=== PATIENT | female | born 1940 | race Caucasian/White ===

== ENCOUNTER → 2017-08-23 11:45 | Outpatient (CLI) | payer MEDICARE, OTHER, SELFPAY ==
--- NOTE | 2017-08-23 11:57 | RAD_ITS ---
STUDY: X-RAY - LEFT HUMERUS REASON FOR EXAM: Female, 77 years old. Patient fell this past Wednesday. Pain in the left humerus into the left shoulder TECHNIQUE: 3 view(s) of the humerus. COMPARISON: None. FINDINGS: Normal visualized humerus. There is no demonstrated fracture or osseous destructive process. There is osteoporosis There is no demonstrated soft tissue abnormality. RAD/Humerus min 2 Views IMPRESSION: Osteoporosis. No fractures or dislocations are seen Electronically Signed: Deion Knutson MD, FACR at 12:14 EST , Service support ,
== END ==
PROVIDERS: Family Provider Family Medicine; PCP Family Medicine; Visit Provider Family Medicine
DX: S43.402A Unspecified sprain of left shoulder joint, initial encounter (principal); X58.XXXA Exposure to other specified factors, initial encounter
CPT/HCPCS: 73060

== ENCOUNTER → 2019-05-24 15:21 | Outpatient (CLI) | payer MEDICARE, OTHER, SELFPAY ==
[2019-05-24 17:48] LABS: Absolute Lymphocyte Count 3.73 X10^3/uL (0.83-4.51); Absolute Neutrophil Count 5.5 X10^3/uL (2.0-7.7); Basophil# 0.11 X10^3/uL; Basophil% 1.1 % (0-1); Eosinophil# 0.21 X10^3/uL; Hematocrit 44.6 % (37-47); Hemoglobin 14.1 g/dL (12.0-15.0); Lymphocyte # 3.73 X10^3/ul (4.0); Mean Corp Hgb Conc 31.6 g/dL (32-36); Mean Corpuscular Hgb 30.4 pg (27.0-32.0); Mean Corpuscular Volume 96.1 fL (81-99); Mean Platelet Vol. 9.6 fl (6.2-12.0); Monocyte# 0.78 X10^3/uL; Monocyte% 7.5 % (0-10); NRBC Flagged by Analyzer 0 % (0-5); Neutrophil # 5.51 X10^3/uL (2.7-7.7); Neutrophil % 53.1 % (47-70); Platelet Count 332 K/mm3 (150-450); RBC Distribution Width CV 14.4 % (11.6-14.6); RBC Distribution Width SD 51.4 fl (35.1-43.9); Red Blood Count 4.64 M/mm3 (4.2-5.4); White Blood Count 10.4 K/mm3 (4.4-11.0)
[2019-05-24 17:57] LABS: Vitamin B12 655 pg/mL (211-911); Vitamin D,25 Hydroxy 53.4 ng/mL (29.95-100.01)
[2019-05-24 18:03] LABS: Erythrocyte Sedimentation Rate 15 mm/hr (0-30)
[2019-05-24 18:48] LABS: ALB/GLOB Ratio 0.9 RATIO (0.9-2.4); AST(SGOT) 24 U/L (15-37); Alanine Aminotransfer ALT/SGPT 27 U/L (13-56); Albumin, Serum 3.8 g/dL (3.2-5.0); Alkaline Phosphatase 89 U/L (45-117); Anion Gap 6 (5-15); BUN 15 mg/dL (7-18); BUN/Creat Ratio 18.4 RATIO (10-20); Calcium,Total 9.3 mg/dL (8.5-10.1); Chloride 106 mmol/L (98-107); Creatinine, Serum 0.82 mg/dL (0.55-1.02); EST Glomerular Filtration Rate 72 mL/min (>60); Est Glom Filt Rate - Afr Amer 87 mL/min (>60); Ferritin 80 ng/mL (8-252); Globulin 4.2 g/dL (2.2-4.2); Glucose 80 mg/dL (74-106); Potassium 3.8 mmol/L (3.5-5.1); Sodium Level 139 mmol/L (136-145); T4 Free Direct 0.76 ng/dL (0.76-1.46); Thyroid Stim Hormone (TSH) 4.49 uIU/mL (0.358-3.74)
[2019-05-25 07:58] LABS: PTHIN 35.2 pg/mL (18.4-80.1)
[2019-05-26 12:29] LABS: ANTINUCLEAR ANTIBODIES DIRECT Negative (Negative)
== END ==
PROVIDERS: Family Provider Family Medicine; PCP Family Medicine; Referring Provider Family Medicine; Visit Provider Family Medicine
DX: M81.0 Age-related osteoporosis without current pathological fracture (principal); R53.81 Other malaise
CPT/HCPCS: 36415; 80053; 82306; 82607; 82728; 82746; 83970; 84439; 84443; 85025; 85652; 86038

== ENCOUNTER → 2020-12-16 17:25 | Outpatient (CLI) | payer MEDICARE, OTHER, SELFPAY ==
--- NOTE | 2020-12-16 17:31 | RAD_ITS ---
STUDY: X-RAY - ACUTE ABDOMINAL SERIES REASON FOR EXAM: Female, 80 years old. constipation TECHNIQUE: Single view of the chest. Supine, and erect view(s) of the abdomen were obtained. COMPARISON: 03/19/2014 FINDINGS: The lungs are clear and expanded. Normal size heart. Normal mediastinum and sherrei. Normal visualized pulmonary arteries. Normal visualized aortic arch and descending thoracic aorta. There is a non-specific bowel gas pattern. The soft tissue structures of the abdomen and pelvis are unremarkable. Normal visualized osseous structures. RAD/Acute Abdomen Inc Chest IMPRESSION: Normal x-ray examination of the chest, abdomen, and pelvis. Electronically Signed: Julio Mathis MD at 18:01 EDT Tel , Service support ,
== END ==
PROVIDERS: PCP Family Medicine; Referring Provider Family Medicine; Visit Provider Family Medicine
DX: K59.00 Constipation, unspecified (principal)
CPT/HCPCS: 74022

== ENCOUNTER 2020-12-24 11:45 | Emergency (ER) | payer MEDICARE, OTHER, SELFPAY ==
[2020-12-24 11:45] VITALS: BP 153/84; PULSE 97; RESP 16; TEMP 36.3; O2SAT 97; BMI 22.8
--- NOTE | 2020-12-24 12:39 | CT_ITS ---
STUDY: CT ABDOMEN AND PELVIS WITHOUT CONTRAST REASON FOR EXAM: Female, 80 years old. Two-week history of abdominal pain and constipation. RADIATION DOSAGE (If Supplied By Facility): CTDIvol = ( 6.24 ) mGy, DLP = ( 277.37 ) mGycm TECHNIQUE: Transaxial images were obtained from the dome of the diaphragm to the symphysis pubis without oral contrast, and without intravenous contrast. Sagittal and coronal images were reconstructed. Individualized dose optimization techniques were used for this CT. COMPARISON: None. FINDINGS: Mild degree of increased linear markings at the lung bases suggestive of linear scarring. Coronary artery calcification Normal liver. Normal gallbladder and extrahepatic biliary system. Normal spleen. Normal pancreas. Normal bilateral adrenal glands. Mild degree of bilateral hydronephrosis although the ureters are not dilated. This may represent congenital UP junction obstruction. Normal visualized stomach. Normal small intestine. There are multiple colonic diverticula consistent with diverticulosis. Moderate amount of fecal material is seen in the colon. There is non-visualization of the appendix. There is diffuse atherosclerotic calcification of the abdominal aorta and its major visceral branches, without a demonstrated aneurysm. Normal inferior vena cava. Normal retroperitoneum. Normal urinary bladder. There is absence of the uterus consistent with a prior hysterectomy. Normal abdominal wall. There are diffuse degenerative changes of the visualized lumbar spine. CT/Abdomen/Pelvis without Cont IMPRESSION: Mild degree of bilateral hydronephrosis. Moderate amount of fecal material is seen in the colon. Electronically Signed: Fausto Cagle MD at 13:34 EDT , Service support ,
[2020-12-24] MEDS: Ondansetron 4 MG/2 ML Vial IV (12:43)
[2020-12-24 12:53] LABS: Absolute Neutrophil Count 5.4 X10^3/uL (2.0-7.7); Basophil# 0.07 X10^3/uL; Basophil% 0.8 % (0-1); Eosinophil# 0.19 X10^3/uL; Eosinophils% 2.2 % (0-5); Hematocrit 44.3 % (37-47); Hemoglobin 14.5 g/dL (12.0-15.0); Lymphocyte % 27.3 % (19-41); Mean Corp Hgb Conc 32.7 g/dL (32-36); Mean Corpuscular Hgb 30.8 pg (27.0-32.0); Mean Corpuscular Volume 94.1 fL (81-99); Mean Platelet Vol. 8.8 fl (6.2-12.0); NRBC Flagged by Analyzer 0 % (0-5); Neutrophil # 5.38 X10^3/uL (2.7-7.7); Neutrophil % 61.2 % (47-70); Platelet Count 356 K/mm3 (150-450); RBC Distribution Width CV 14.2 % (11.6-14.6); RBC Distribution Width SD 49.5 fl (35.1-43.9); Red Blood Count 4.71 M/mm3 (4.2-5.4); White Blood Count 8.8 K/mm3 (4.4-11.0)
[2020-12-24 13:09] LABS: ALB/GLOB Ratio 0.8 RATIO (0.9-2.4); AST(SGOT) 22 U/L (15-37); Alanine Aminotransfer ALT/SGPT 19 U/L (13-56); Albumin, Serum 3.4 g/dL (3.2-5.0); Alkaline Phosphatase 106 U/L (45-117); Anion Gap 7 (5-15); BUN 11 mg/dL (7-18); BUN/Creat Ratio 12.1 RATIO (10-20); Calcium,Total 9.3 mg/dL (8.5-10.1); Chloride 109 mmol/L (98-107); Creatinine, Serum 0.91 mg/dL (0.55-1.02); EST Glomerular Filtration Rate 63 mL/min (>60); Est Glom Filt Rate - Afr Amer 76 mL/min (>60); Globulin 4.1 g/dL (2.2-4.2); Glucose 78 mg/dL (74-106); Lipase 128 U/L (73-393); Potassium 3.8 mmol/L (3.5-5.1); Protein, Total 7.5 g/dL (6.4-8.2); Sodium Level 141 mmol/L (136-145)
[2020-12-24 14:00] LABS: Bacteria 0 SEEN /hpf (None Seen); Mucous, Urine 0 SEEN /hpf (<or=2+); Red Blood Cells-Urine 0 SEEN /hpf (0-5); Squamous Epithelial Cells - UA 0 SEEN /hpf (5-10); White Blood Cells 0 SEEN /hpf (0-5)
[2020-12-24 14:06] LABS: Color, Urine Yellow (Yellow); Glucose, Dipstick Normal (Normal); Ketone-Dipstick Negative (Negative); Leukocyte Esterase-Dipstick Negative /ul (Negative); Nitrite-Dipstick Negative (Negative); Occult Blood-Urine 10 /ul (Negative); Protein-Dipstick Negative (Negative); Specific Gravity, Urine 1.015 (1.002-1.030); Urine Bilirubin Dipstick Negative (Negative); Urine Clarity Clear (Clear); Urine Urobilinogen Normal (Normal)
--- NOTE | 2020-12-24 14:37 | EX.ED.DYSGE1 ---
HPI History of Present Illness Chief Complaint: Constipation Narrative Narrative: Presents with daughter complaining constipation for many weeks, she has been on a regimen at home consisting of 2 L drink of MiraLAX Dulcolax other therapies per her physicians, she did an enema, she reports her stools are runny but she does not feel as if she is evacuating her rectum. She has had no nausea or vomiting she is not had a colonoscopy she has no other complaints no fever no cough no cranial exposures no GI history PFSH PFSH Allergy/AdvReac Type Severity Reaction Status Date / Time codeine Allergy Itching Verified 12/24/20 11:49 itraconazole [From Sporanox] Allergy Hives Verified 12/24/20 11:49 Social History Smoking Status: Current every day smoker tobacco type: cigarettes ROS ROS ED ROS Narrative Constipation is the only complaint Constitutional Constitutional ED: Reports subjective, sweats and other; Denies chills, fever(s) or weight loss Eyes Eyes: Denies blurry vision or change in vision ENT ENT ED: Denies ear pain Cardiovascular Cardiovascular: Denies chest pain or palpitations Respiratory/Chest Respiratory/Chest: Denies dyspnea Gastrointestinal Gastrointestinal: Denies abdominal pain, nausea or vomiting Genitourinary Genitourinary ED: Denies dysuria or hematuria Musculoskeletal Musculoskeletal: Denies arthralgias or myalgias Integumentary Reports rash; Denies abscess Neurologic Neurologic: Denies weakness Psychiatric Psychiatric: Denies anxiety or depression Endocrine Endocrinology: Denies polydipsia or polyuria Allergic/Immunologic Allergic/Immunologic ED: Denies urticaria EXAM Physical Exam Narrative Exam Narrative: The abdomen is soft the rectal exam shows empty vault nontender Const Vital Signs: 12/24/20 11:45 Temperature 97.4 F L Temperature Source Temporal Pulse Rate 97 Respiratory Rate 16 Blood Pressure 153/84 H Blood Pressure Mean 107 Pulse Ox 97 Oxygen Delivery Method Room Air Positive well developed General Appearance ED: well developed HEENT Reports normocephalic Negative for trauma Eyes EOMs intact bilaterally Neck supple Chest Wall inspection of chest normal Resp normal respiratory effort Cardio regular rate GI non-tender and non-distended Back/Spine Back/Spine Narrative: unremarkable Extremity normal to inspection Neuro oriented x3 and CN's II-XII intact bilaterally Sensorium / Orientation: alert Psych mental status grossly normal Skin no rashes or lesions noted MDM MDM MDM Narrative Medical decision making narrative: Patient is resting comfortably bed no distress discussed all above with her daughter she is been taking the MiraLAX home regimen she is having brown watery stools, no pain eating and drinking, given all the above 78 screen evaluation screening labs are unremarkable, CT abdomen pelvis shows constipation bilateral hydronephrosis her bladder seem distended she did void we placed Mayberry catheter drain the remaining urine UA showed no signs of UTI, we discussed urinary retention discussed Mayberry catheter placement patient declined that stating she has no trouble emptying her bladder She has no history of urinary retention or history of any issues she has no GI issues, I discussed findings she is comfortable discharge home with family continue her GI regimen as above she will be referred to as well follow with PCP and return for change in symptoms Home stable Final impression constipation, urinary retention Lab Data Labs: Laboratory Results - last 24 hr 12/24/20 12/24/20 12/24/20 12:50 12:50 13:50 WBC 8.8 RBC 4.71 Hgb 14.5 Hct 44.3 MCV 94.1 MCH 30.8 MCHC 32.7 RDW Std Deviation 49.5 H RDW Coeff of Vangie 14.2 Plt Count 356 MPV 8.8 Immature Gran % (Auto) 0.500 Neut % (Auto) 61.2 Lymph % (Auto) 27.3 [place] % (Auto) 8.0 Eos % (Auto) 2.2 Baso % (Auto) 0.8 Absolute Neuts (auto) 5.4 Absolute Lymphs (auto) 2.40 Nucleated RBC % 0 Sodium 141 Potassium 3.8 Chloride 109 H Carbon Dioxide 25.0 Anion Gap 7 BUN 11 Creatinine 0.91 Estim Creat Clear Calc 37.70 Est GFR (MDRD) Af Amer 76 Est GFR (MDRD) Non-Af 63 BUN/Creatinine Ratio 12.1 Glucose 78 Calcium 9.3 Total Bilirubin 0.20 AST 22 ALT 19 Alkaline Phosphatase 106 Total Protein 7.5 Albumin 3.4 Globulin 4.1 Albumin/Globulin Ratio 0.8 L Lipase 128 Urine Color Yellow Urine Clarity Clear Urine pH 5.0 Ur Specific [place] 1.015 Urine Protein Negative Urine Glucose (UA) Normal Urine Ketones Negative Urine Occult Blood 10 H Urine Nitrite Negative Urine Bilirubin Negative Urine Urobilinogen Normal Ur Leukocyte Esterase Negative Urine RBC 0 SEEN Urine WBC 0 SEEN Ur Squamous Epith Cells 0 SEEN Urine Bacteria 0 SEEN Urine Mucus 0 SEEN Radiography Diagnostic Testing: Radiology Impression Abdomen/Pelvis CT 12/24/20 12:39 IMPRESSION: Mild degree of bilateral hydronephrosis. Moderate amount of fecal material is seen in the colon. Electronically Signed: Fausto Cagle MD at 13:34 EDT , Service support , Discharge Plan Triage Chief Complaint: Constipation ED Provider: Macario Lau Dx/Rx/DC Orders Instructions: ED Constipation (Adult), ED Abdominal Pain Unkn Cause Fem Primary Care Provider: Guido Lau Referrals: Guido Lau MD [Primary Care Provider] - Boo Mcmullen MD [STAFF PHYSICIAN] -
[2020-12-24 14:52] VITALS: PULSE 68; O2SAT 98
== END 2020-12-24 14:53 | disposition home or self-care (01) ==
LOC: ED 12:39
PROVIDERS: Emergency Provider Emergency Medicine; PCP Family Medicine
DX: K59.00 Constipation, unspecified (principal); R33.9 Retention of urine, unspecified; F17.210 Nicotine dependence, cigarettes, uncomplicated
CPT/HCPCS: 74176; 80053; 81001; 83690; 85025; 87077; 87086; 87088; 87186; 96361; 96374; 96375; 99284; J7040; P9612; A4216; J2405

== ENCOUNTER 2020-12-27 14:07 | Emergency (ER) | payer MEDICARE, OTHER, SELFPAY ==
[2020-12-27 14:08] VITALS: BP 159/84; PULSE 95; RESP 18; TEMP 36.8; O2SAT 97; BMI 23.6
--- NOTE | 2020-12-27 14:37 | RAD_ITS ---
INDICATION: Obstipation, distention EXAMINATION/TECHNIQUE: X-RAY - XR Abdomen W/ Decub and/or Erect Views COMPARISON: 12/16/2020 FINDINGS: BOWEL GAS PATTERN: Non-obstructive. Moderate amount retained stool in colon. FREE AIR: Not assessed on a single supine view. ORGANOMEGALY: Not seen. CALCIFICATIONS: No abnormal calcifications observed. LOWER CHEST: No acute pathology. BONES AND SOFT TISSUES: No acute pathology. Degenerative changes of the hips. RAD/Abd Inc Decub and/or Erect IMPRESSION: Non-obstructive bowel gas pattern. Moderate amount retained stool in colon. Electronically Signed: José Antonio Salmon MD at 16:46 EDT Tel , Service support ,
--- NOTE | 2020-12-27 15:21 | EX.ED.DYSGE1 ---
HPI History of Present Illness Chief Complaint: Constipation Detail of Chief Complaint: Abdominal discomfort and constipation Informant: patient and family Onset/Context/Timing Onset: Weeks Context: Gradual Onset Timing: Continuous Quality: Abdominal discomfort, distention, no normal BM for 4 weeks Location: GI Current Severity: Moderate Maximum Severity: Severe Worsened by: Nothing Relieved by: Nothing Associated Symptoms Associated Symptoms: Belching and positive flatus Narrative Narrative: Patient is an elderly woman who was seen on Wednesday. CT of the abdomen revealed evidence of constipation and mild bilateral hydronephrosis. There was no evidence of obstructing stone. She presents because she has had no results in spite of taking Metamucil 3 times a day. She denies fever, chills night sweats. She denies cardiac respiratory symptoms. She denies urologic symptoms. Prior similar symptoms: Yes Recent Illness/Hospitalization: Yes PFSH PFSH Allergy/AdvReac Type Severity Reaction Status Date / Time codeine Allergy Itching Verified 12/27/20 14:10 itraconazole [From Sporanox] Allergy Hives Verified 12/27/20 14:10 Social History (Updated 12/27/20 @ 15:[address] Chevy Gusman MD) household members: none Smoking Status: Current every day smoker tobacco type: cigarettes alcohol intake: current alcohol intake frequency: holidays/special occasions only substance use type: does not use ROS ROS ED Constitutional Constitutional ED: Denies chills, fever(s), subjective, sweats or weight loss Eyes Eyes: Denies blurry vision, change in vision or diplopia ENT ENT ED: Denies ear pain, rhinorrhea or sore throat Cardiovascular Cardiovascular: Denies chest pain, palpitations or racing heartbeat Respiratory/Chest Respiratory/Chest: Denies cough, dyspnea or dyspnea on exertion Gastrointestinal Gastrointestinal: Reports abdominal pain and constipation; Denies diarrhea, melena, nausea or vomiting Genitourinary Genitourinary ED: Denies dysuria, hematuria or urinary frequency Musculoskeletal Musculoskeletal: Denies arthralgias, back pain, myalgias or neck pain Neurologic Neurologic: Denies headache(s), paresthesias or weakness EXAM Physical Exam Const Vital Signs: 12/27/20 14:08 Temperature 98.2 F Temperature Source Temporal Pulse Rate 95 Respiratory Rate 18 Blood Pressure 159/84 H Blood Pressure Mean 109 Pulse Ox 97 Oxygen Delivery Method Room Air Positive well nourished and well developed General Appearance ED: well developed and NAD HEENT Reports dry mucous membranes Negative for trauma or tenderness Mouth ED: Yes dry mucous membranes Mouth: dry mucous membranes Eyes EOMs intact bilaterally General Eye ED: Negative for pale conjunctiva or scleral icterus Neck No no lymphadenopathy, No supple and No no JVD Resp normal respiratory effort and clear to auscultation bilaterally Cardio regular rate, regular rhythm, S1 normal heart sound, S2 normal heart sound and no murmurs GI no masses; Negative for non-distended or hepatosplenomegaly GI Narrative: Abdomen is slightly tympanic to percussion. Bowel sounds are diminished. There is no evidence of ventral or inguinal hernia. Inspection: abdominal distention Auscultation: hypoactive bowel sounds Palpation: soft and tender; Negative for splenomegaly Back/Spine no CVA tenderness Thoracic Spine / Upper Back: Negative for thoracic spinal tenderness or paraspinal muscle tenderness Extremity normal to inspection General Extremety ED: Yes edema; Negative for tenderness General Extremity: edema Neuro oriented x3, CN's II-XII intact bilaterally and no sensory deficits noted Sensorium / Orientation: alert Motor Exam: strength 5/5 throughout Psych mental status grossly normal Skin no rashes or lesions noted and no wounds MDM MDM MDM Narrative Medical decision making narrative: Since patient's had x2 and hysterectomy will obtain abdominal films to evaluate for partial small bowel obstruction. If there is no evidence of bowel obstruction will discharge to home with GI protocol for obstipation. Radiography Chest X-Ray - ED: 2 View and Read by ED Physician (2 view x-ray of the abdomen reveals an ossific gas pattern with no evidence of ileus or partial small bowel obstruction. There is significant mount of fecal matter noted throughout the colon.) Discharge Plan Triage Chief Complaint: Constipation ED Provider: Chevy Gusman Dx/Rx/DC Orders Clinical Impression: Obstipation Instructions: ED Constipation (Adult) Primary Care Provider: Guido Lau Referrals: Guido Lau MD [Primary Care Provider] - 3-5 Days if not improving Activity Restrictions/Additional Instructions: 1. Tomorrow morning drink 10 ounces of mag citrate upon awakening 2. 4 hours later drink 1 glass of MiraLAX 3. Continue to drink a glass of MiraLAX every 1-2 hours until you have results. Disposition Disposition: Home, self care
== END 2020-12-27 16:44 | disposition home or self-care (01) ==
PROVIDERS: Emergency Provider Emergency Medicine; PCP Family Medicine
DX: K59.00 Constipation, unspecified (principal); F17.210 Nicotine dependence, cigarettes, uncomplicated
CPT/HCPCS: 74019; 99282

== ENCOUNTER 2020-12-28 23:42 | Emergency (ER) | payer MEDICARE, OTHER, SELFPAY ==
[2020-12-27 14:08] VITALS: BMI 23.6
[2020-12-28 23:44] VITALS: BP 162/86; PULSE 88; RESP 16; TEMP 36.6; O2SAT 97; BMI 21.9
--- NOTE | 2020-12-29 00:24 | CT_ITS ---
We are attempting to reach an attending provider to discuss findings. An addendum with communication details will be sent when the communication is complete. STUDY: CT ABDOMEN AND PELVIS WITH CONTRAST REASON FOR EXAM: Female, 80 years old. constipation -- IV PO Contrast RADIATION DOSAGE (If Supplied By Facility): CTDIvol = ( 14.32 ) mGy, DLP = ( 940.63 ) mGycm TECHNIQUE: Transaxial images were obtained from the dome of the diaphragm to the symphysis pubis without oral contrast. Oral and amp; IV Gastrografin and amp; 100mL Isovue-370 was administered. Sagittal and coronal images were reconstructed. Individualized dose optimization techniques were used for this CT. COMPARISON: None. FINDINGS: Mild right posterior dependent atelectasis, remainder of the lung bases are clear. The visualized portions of the heart are within normal limits. Normal liver. Normal gallbladder and extrahepatic biliary system. Normal spleen. Normal pancreas. Normal bilateral adrenal glands. Multiple low-attenuation structures within the right kidney largest seen in the upper pole and measuring approximately 1.0 cm, too small to characterize and statistically consistent with cysts. 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 Differential diagnosis includes pelviectasis versus peripelvic cysts. Normal left kidney. Normal visualized stomach. Normal small intestine. There is inflammatory process with thickening of the wall of the distal sigmoid. There is an perisigmoid fluid collection on image 81, series 2 measuring approximately 1.4 cm present a small abscess versus large diverticulum. There are surrounding inflammatory changes. Cannot entirely exclude an inflammatory neoplasm. There is non-visualization of the appendix. Normal abdominal aorta. Normal inferior vena cava. Normal retroperitoneum. Normal urinary bladder. Normal abdominal wall. Normal osseous structures. CT/Abdomen/Pelvis WITH Contrast IMPRESSION: Distal sigmoid colitis with the perisigmoid/perirectal abscess measuring 1.4 cm versus large diverticulum/diverticulitis. Cannot exclude inflammatory neoplasm. Recommend follow-up with colonoscopy following treatment. Electronically Signed: Bety Mak MD at 2:53 EDT , Service support ,
--- NOTE | 2020-12-29 00:28 | ED.VIS.GI ---
HPI HPI - GI History of Present Illness Chief Complaint: Constipation Narrative Narrative: 80-year-old female presenting with constipation. Her daughter states she has not had a solid bowel movement in about a month. She has been seen twice in the ED for this and had lab work checked which was normal. She had a CT and a KUB which showed she was constipated. She has tried enemas at home, MiraLAX, magnesium citrate even and multiple doses she is not able to have a bowel movement. She states she only has intermittent cramping pain but is not in pain now. Sometimes she has nausea. She has been able to eat but her intake is less. She denies fever, chills. PFSH PFSH Medical History Smoker Home Medications cholecalciferol (vitamin D3) [Vitamin D3] 10,000 unit PO DAILY 12/29/20 [History Last Taken Unknown] Allergy/AdvReac Type Severity Reaction Status Date / Time codeine Allergy Itching Verified 12/28/20 23:43 itraconazole [From Sporanox] Allergy Hives Verified 12/28/20 23:43 Surgical History History of hysterectomy Hx of section Social History household members: none Smoking Status: Current every day smoker tobacco type: cigarettes alcohol intake: current alcohol intake frequency: holidays/special occasions only substance use type: does not use ROS ROS ED Constitutional Constitutional ED: Denies fever(s) or subjective ENT ENT ED: Denies ear pain, rhinorrhea or sore throat Cardiovascular Cardiovascular: Denies chest pain or palpitations Respiratory/Chest Respiratory/Chest: Denies cough or dyspnea Gastrointestinal Gastrointestinal: Reports abdominal pain, constipation and nausea Genitourinary Genitourinary ED: Denies dysuria or hematuria Musculoskeletal Musculoskeletal: Denies arthralgias or myalgias Integumentary Denies abscess or rash Neurologic Neurologic: Denies headache(s) or weakness Psychiatric Psychiatric: Denies anxiety or depression EXAM Physical Exam Const Vital Signs: 12/28/20 23:44 Temperature 98 F Temperature Source Temporal Pulse Rate 88 Respiratory Rate 16 Blood Pressure 162/86 H Blood Pressure Mean 111 Pulse Ox 97 Oxygen Delivery Method Room Air Positive well nourished General Appearance ED: NAD HEENT normocephalic and atraumatic Eyes PERRL and EOMs intact bilaterally General Eye ED: Negative for scleral icterus Resp normal respiratory effort and clear to auscultation bilaterally Cardio regular rate and regular rhythm GI non-tender Inspection: abdominal distention Auscultation: hypoactive bowel sounds Extremity full ROM General Extremety ED: Negative for edema General Extremity: Negative for edema Neuro Sensorium / Orientation: alert and oriented to person Psych mental status grossly normal Skin Lesions: no lesions Rashes: no rashes MDM MDM MDM Narrative Medical decision making narrative: Patient again presenting with pain which she describes as fairly diffuse. It is intermittent and she currently does not require anything for pain. She does state that she has been eating a little bit and has nausea sometimes. She does not wish to have anything for nausea or pain currently. She has tried multiple modalities to try to have a bowel movement and cannot for nearly a month. She states he is having watery stools at times. She denies fever, weakness. Lab work today shows no leukocytosis. Her hemoglobin hematocrit are stable. There is no left shift. Renal function and electrolytes are normal. LFTs are normal. Her vital signs are stable and she is afebrile. She had a CT of the abdomen and pelvis with p.o. and IV contrast which the radiologist read as distal sigmoid colitis with the perisigmoid perirectal abscess measuring 1.4 cm versus neoplasm. She also stated this could just be a large diverticulum. When I spoke with her on the phone I did ask if this could be causing some obstructive process and she states that it does not cause an obstructive process. Given that she does not really have any systemic symptoms of infection and she has no white count I have a low suspicion for infection. I discussed the case with Dr. Eubanks who stated that she needed a GI specialist. After speaking with the patient and her family they decided to go to [facility]. I spoke with Dr. Saldivar and I did discuss with her that I do not think this is diverticulitis or abscess. I think she needs a colonoscopy to figure why she has not had a bowel movement for a month and to determine if this inflammatory area is cancerous or not. She did accept the patient in transfer. She requested a Covid swab which was done and was negative. Impression: 1. Abdominal pain 2. Constipation 3. Possible sigmoid neoplasm Lab Data Attestation: I reviewed the patient's lab results. Labs: Laboratory Results - last 24 hr 12/29/20 12/29/20 00:50 00:50 WBC 10.1 RBC 4.72 Hgb 14.2 Hct 44.3 MCV 93.9 MCH 30.1 MCHC 32.1 RDW Std Deviation 49.1 H RDW Coeff of Vangie 14.1 Plt Count 379 MPV 8.7 Immature Gran % (Auto) 0.400 Neut % (Auto) 57.4 Lymph % (Auto) 30.8 [place] % (Auto) 7.0 Eos % (Auto) 3.6 Baso % (Auto) 0.8 Absolute Neuts (auto) 5.8 Absolute Lymphs (auto) 3.10 Nucleated RBC % 0 Sodium 139 Potassium 3.7 Chloride 105 Carbon Dioxide 27.0 Anion Gap 7 BUN 12 Creatinine 0.92 Estim Creat Clear Calc 40.71 Est GFR (MDRD) Af Amer 76 Est GFR (MDRD) Non-Af 62 BUN/Creatinine Ratio 13.1 Glucose 97 Calcium 9.2 Total Bilirubin 0.40 AST 19 ALT 19 Alkaline Phosphatase 122 H Total Protein 7.9 Albumin 3.5 Globulin 4.4 H Albumin/Globulin Ratio 0.8 L Radiography Diagnostic Testing: Radiology Impression Abdomen/Pelvis CT 12/29/20 00:24 IMPRESSION: Distal sigmoid colitis with the perisigmoid/perirectal abscess measuring 1.4 cm versus large diverticulum/diverticulitis. Cannot exclude inflammatory neoplasm. Recommend follow-up with colonoscopy following treatment. Electronically Signed: Bety Mak MD at 2:53 EDT , Service support , ADDENDUM: 12/29/20 0311 IMPRESSION: Distal sigmoid colitis with the perisigmoid/perirectal abscess measuring 1.4 cm versus large diverticulum/diverticulitis. Cannot exclude inflammatory neoplasm. Recommend follow-up with colonoscopy following treatment. N.B. : The above Results were Read Back by Bety Mak MD to Chauncey Garcia DO, and understanding confirmed on 12/29/2020 03:09:44 (ET). Electronically Signed: Bety Mak MD at 2:53 EDT , Service support , Discharge Plan Triage Chief Complaint: Constipation ED Provider: Chauncey Garcia Dx/Rx/DC Orders Prescriptions: No Action cholecalciferol (vitamin D3) [Vitamin D3] 125 mcg (5,000 unit) Tablet 10,000 unit PO DAILY RF: 0 Primary Care Provider: Guido Lau Referrals: Guido Lau MD [Primary Care Provider] - Disposition Discharge Location: [facility] [place]
[2020-12-29 00:59] LABS: Absolute Neutrophil Count 5.8 X10^3/uL (2.0-7.7); Basophil# 0.08 X10^3/uL; Basophil% 0.8 % (0-1); Eosinophil# 0.36 X10^3/uL; Eosinophils% 3.6 % (0-5); Hematocrit 44.3 % (37-47); Hemoglobin 14.2 g/dL (12.0-15.0); Lymphocyte % 30.8 % (19-41); Mean Corp Hgb Conc 32.1 g/dL (32-36); Mean Corpuscular Hgb 30.1 pg (27.0-32.0); Mean Corpuscular Volume 93.9 fL (81-99); Mean Platelet Vol. 8.7 fl (6.2-12.0); NRBC Flagged by Analyzer 0 % (0-5); Neutrophil # 5.78 X10^3/uL (2.7-7.7); Neutrophil % 57.4 % (47-70); Platelet Count 379 K/mm3 (150-450); RBC Distribution Width CV 14.1 % (11.6-14.6); RBC Distribution Width SD 49.1 fl (35.1-43.9); Red Blood Count 4.72 M/mm3 (4.2-5.4); White Blood Count 10.1 K/mm3 (4.4-11.0)
[2020-12-29 01:19] LABS: ALB/GLOB Ratio 0.8 RATIO (0.9-2.4); AST(SGOT) 19 U/L (15-37); Alanine Aminotransfer ALT/SGPT 19 U/L (13-56); Albumin, Serum 3.5 g/dL (3.2-5.0); Alkaline Phosphatase 122 U/L (45-117); Anion Gap 7 (5-15); BUN 12 mg/dL (7-18); BUN/Creat Ratio 13.1 RATIO (10-20); Calcium,Total 9.2 mg/dL (8.5-10.1); Chloride 105 mmol/L (98-107); Creatinine, Serum 0.92 mg/dL (0.55-1.02); EST Glomerular Filtration Rate 62 mL/min (>60); Est Glom Filt Rate - Afr Amer 76 mL/min (>60); Estimated Creatinine Clearance 40.71 ml/min; Globulin 4.4 g/dL (2.2-4.2); Glucose 97 mg/dL (74-106); Potassium 3.7 mmol/L (3.5-5.1); Protein, Total 7.9 g/dL (6.4-8.2); Sodium Level 139 mmol/L (136-145)
[2020-12-29 05:00] VITALS: BP 137/56; PULSE 81; RESP 14; O2SAT 96
[2020-12-29 07:11] VITALS: PULSE 80
== END 2020-12-29 07:11 ==
PROVIDERS: Emergency Provider Student in an Organized Health Care Education/Training Program; PCP Family Medicine
DX: K59.00 Constipation, unspecified (principal); R11.0 Nausea; K52.9 Noninfective gastroenteritis and colitis, unspecified; F17.210 Nicotine dependence, cigarettes, uncomplicated
CPT/HCPCS: 74177; 80053; 85025; 87426; 99285; Q9967; A4216

== ENCOUNTER → 2021-01-09 12:08 | Outpatient (CLI) | payer MEDICARE, OTHER, SELFPAY ==
[2020-12-28 23:44] VITALS: BMI 21.9
--- NOTE | 2021-01-09 12:25 | RAD_ITS ---
STUDY: X-RAY - ACUTE ABDOMINAL SERIES REASON FOR EXAM: Female, 80 years old. ongoing constipation, diverticulitis TECHNIQUE: Single view of the chest. Supine, and erect view(s) of the abdomen were obtained. COMPARISON: None. FINDINGS: The lungs are clear and expanded. Normal size heart. Normal mediastinum and sherrie. Normal visualized pulmonary arteries. There is atherosclerotic calcification of the aortic arch with tortuosity. There are several air involving the distribution of the colon most compatible with nonspecific enteritis versus mild obstruction. No significant dilatation to suggest obstruction. No clear. The soft tissue structures of the abdomen and pelvis are unremarkable. Normal visualized osseous structures. RAD/Acute Abdomen Inc Chest IMPRESSION: No acute cardiopulmonary disease. Possible nonspecific enteritis. No distinct signs of bowel obstruction or free air. Electronically Signed: Bety Mak MD at 3:14 EDT , Service support ,
[2021-01-09 15:14] LABS: Erythrocyte Sedimentation Rate 29 mm/hr (0-30)
[2021-01-09 15:23] LABS: ALB/GLOB Ratio 0.8 RATIO (0.9-2.4); AST(SGOT) 20 U/L (15-37); Alanine Aminotransfer ALT/SGPT 22 U/L (13-56); Albumin, Serum 3.4 g/dL (3.2-5.0); Alkaline Phosphatase 119 U/L (45-117); Anion Gap 7 (5-15); BUN 9 mg/dL (7-18); BUN/Creat Ratio 9.2 RATIO (10-20); Calcium,Total 9.8 mg/dL (8.5-10.1); Chloride 104 mmol/L (98-107); Creatinine, Serum 0.98 mg/dL (0.55-1.02); EST Glomerular Filtration Rate 58 mL/min (>60); Est Glom Filt Rate - Afr Amer 70 mL/min (>60); Ferritin 87 ng/mL (8-252); Globulin 4.3 g/dL (2.2-4.2); Glucose 81 mg/dL (74-106); Potassium 3.8 mmol/L (3.5-5.1); Protein, Total 7.7 g/dL (6.4-8.2); Sodium Level 139 mmol/L (136-145)
[2021-01-09 15:39] LABS: Absolute Lymphocyte Count 2.66 X10^3/uL (0.83-4.51); Absolute Neutrophil Count 6.2 X10^3/uL (2.0-7.7); Basophil# 0.06 X10^3/uL; Basophil% 0.6 % (0-1); Eosinophil# 0.19 X10^3/uL; Eosinophils% 1.9 % (0-5); Hematocrit 41.8 % (37-47); Hemoglobin 13.5 g/dL (12.0-15.0); Lymphocyte # 2.66 X10^3/ul (0.83-4.51); Lymphocyte % 27.1 % (19-41); Mean Corp Hgb Conc 32.3 g/dL (32-36); Mean Corpuscular Hgb 30.3 pg (27.0-32.0); Mean Corpuscular Volume 93.9 fL (81-99); Mean Platelet Vol. 9.5 fl (6.2-12.0); Monocyte# 0.75 X10^3/uL; Monocyte% 7.6 % (0-10); NRBC Flagged by Analyzer 0 % (0-5); Neutrophil # 6.15 X10^3/uL (2.7-7.7); Neutrophil % 62.6 % (47-70); Platelet Count 446 K/mm3 (150-450); RBC Distribution Width CV 13.8 % (11.6-14.6); RBC Distribution Width SD 48.1 fl (35.1-43.9); Red Blood Count 4.45 M/mm3 (4.2-5.4); White Blood Count 9.8 K/mm3 (4.4-11.0)
== END ==
PROVIDERS: PCP Family Medicine; Referring Provider Family Medicine; Visit Provider Family Medicine
DX: K57.32 Diverticulitis of large intestine without perforation or abscess without bleeding (principal); K59.00 Constipation, unspecified
CPT/HCPCS: 36415; 74022; 80053; 82728; 85025; 85652; 86140

== ENCOUNTER → 2021-01-16 11:18 | Outpatient (CLI) | payer MEDICARE, OTHER, SELFPAY ==
[2020-12-28 23:44] VITALS: BMI 21.9
[2021-01-16 15:10] LABS: ALB/GLOB Ratio 0.7 RATIO (0.9-2.4); AST(SGOT) 25 U/L (15-37); Alanine Aminotransfer ALT/SGPT 30 U/L (13-56); Albumin, Serum 3.4 g/dL (3.2-5.0); Alkaline Phosphatase 125 U/L (45-117); Anion Gap 7 (5-15); BUN 12 mg/dL (7-18); BUN/Creat Ratio 13.6 RATIO (10-20); Calcium,Total 9.8 mg/dL (8.5-10.1); Chloride 102 mmol/L (98-107); Creatinine, Serum 0.88 mg/dL (0.55-1.02); EST Glomerular Filtration Rate 65 mL/min (>60); Est Glom Filt Rate - Afr Amer 78 mL/min (>60); Globulin 4.6 g/dL (2.2-4.2); Glucose 85 mg/dL (74-106); Magnesium 2.3 mg/dL (1.6-2.6); Potassium 4.7 mmol/L (3.5-5.1); Sodium Level 139 mmol/L (136-145)
[2021-01-16 15:11] LABS: Vitamin D,25 Hydroxy 63.8 ng/mL
== END ==
PROVIDERS: PCP Family Medicine; Referring Provider Family Medicine; Visit Provider Family Medicine
DX: M81.0 Age-related osteoporosis without current pathological fracture (principal); K57.32 Diverticulitis of large intestine without perforation or abscess without bleeding; R25.2 Cramp and spasm
CPT/HCPCS: 36415; 80053; 82306; 83735; 86140

== ENCOUNTER → 2021-01-22 14:40 | Outpatient (CLI) | payer MEDICARE, OTHER, SELFPAY ==
[2020-12-28 23:44] VITALS: BMI 21.9
--- NOTE | 2021-01-22 14:45 | RAD_ITS ---
INDICATION: ABDOMINAL PAIN, ACUTE EXAMINATION/TECHNIQUE: X-RAY - XR Abdomen W/ Decub and/or Erect Views COMPARISON: 01/09/2021 FINDINGS: BOWEL GAS PATTERN: Non-obstructive. No bowel or stomach distention. FREE AIR: Not assessed on a single supine view. ORGANOMEGALY: Not seen. CALCIFICATIONS: No abnormal calcifications observed. LOWER CHEST: No acute pathology. BONES AND SOFT TISSUES: No acute pathology. Moderate degenerative changes of the bilateral hips and lumbar spine. RAD/Abd Inc Decub and/or Erect IMPRESSION: Non-obstructive bowel gas pattern. Electronically Signed: José Antonio Salmon MD at 16:56 EDT Tel , Service support ,
== END ==
PROVIDERS: PCP Family Medicine; Referring Provider Family Medicine; Visit Provider Family Medicine
DX: R10.9 Unspecified abdominal pain (principal)
CPT/HCPCS: 74019

== ENCOUNTER → 2021-02-14 09:55 | Outpatient (CLI) | payer MEDICARE, OTHER, SELFPAY ==
--- NOTE | 2021-02-14 09:58 | RAD_ITS ---
STUDY: X-RAY - ACUTE ABDOMINAL SERIES REASON FOR EXAM: Female, 80 years old. pain TECHNIQUE: Single view of the chest. Supine, and erect view(s) of the abdomen were obtained. COMPARISON: 01/09/2021 FINDINGS: The lungs are clear and expanded. Normal size heart. Normal mediastinum and sherrie. Normal visualized pulmonary arteries. Normal visualized aortic arch and descending thoracic aorta. There is a non-specific bowel gas pattern. The soft tissue structures of the abdomen and pelvis are unremarkable. Normal visualized osseous structures. RAD/Acute Abdomen Inc Chest IMPRESSION: Normal x-ray examination of the chest, abdomen, and pelvis. Electronically Signed: Julio Mathis MD at 11:58 EDT Tel , Service support ,
[2021-02-14 12:01] LABS: Absolute Lymphocyte Count 2.45 X10^3/uL (0.83-4.51); Absolute Neutrophil Count 6.3 X10^3/uL (2.0-7.7); Basophil# 0.09 X10^3/uL; Basophil% 0.9 % (0-1); Eosinophil# 0.19 X10^3/uL; Eosinophils% 1.9 % (0-5); Hematocrit 42.9 % (37-47); Hemoglobin 13.7 g/dL (12.0-15.0); Lymphocyte # 2.45 X10^3/ul (0.83-4.51); Mean Corp Hgb Conc 31.9 g/dL (32-36); Mean Corpuscular Hgb 29.9 pg (27.0-32.0); Mean Corpuscular Volume 93.7 fL (81-99); Mean Platelet Vol. 9.3 fl (6.2-12.0); Monocyte# 0.75 X10^3/uL; Monocyte% 7.7 % (0-10); NRBC Flagged by Analyzer 0 % (0-5); Neutrophil # 6.29 X10^3/uL (2.7-7.7); Neutrophil % 64.3 % (47-70); Platelet Count 442 K/mm3 (150-450); RBC Distribution Width CV 14.3 % (11.6-14.6); RBC Distribution Width SD 49.1 fl (35.1-43.9); Red Blood Count 4.58 M/mm3 (4.2-5.4); White Blood Count 9.8 K/mm3 (4.4-11.0)
[2021-02-14 12:25] LABS: ALB/GLOB Ratio 0.8 RATIO (0.9-2.4); AST(SGOT) 25 U/L (15-37); Alanine Aminotransfer ALT/SGPT 24 U/L (13-56); Albumin, Serum 3.5 g/dL (3.2-5.0); Alkaline Phosphatase 103 U/L (45-117); Anion Gap 5 (5-15); BUN 13 mg/dL (7-18); BUN/Creat Ratio 17.4 RATIO (10-20); CRP 4.53 mg/L (0.0-3.0); Calcium,Total 9.3 mg/dL (8.5-10.1); Chloride 104 mmol/L (98-107); Creatinine, Serum 0.75 mg/dL (0.55-1.02); EST Glomerular Filtration Rate 79 mL/min (>60); Est Glom Filt Rate - Afr Amer 95 mL/min (>60); Globulin 4.2 g/dL (2.2-4.2); Glucose 93 mg/dL (74-106); Potassium 4.3 mmol/L (3.5-5.1); Protein, Total 7.7 g/dL (6.4-8.2); Sodium Level 137 mmol/L (136-145)
== END ==
PROVIDERS: PCP Family Medicine; Referring Provider Family Medicine; Visit Provider Family Medicine
DX: K57.30 Diverticulosis of large intestine without perforation or abscess without bleeding (principal); K59.00 Constipation, unspecified; R10.9 Unspecified abdominal pain
CPT/HCPCS: 36415; 74022; 80053; 85025; 86140

== ENCOUNTER 2021-07-21 09:13 | Day surgery (SDC) | payer MEDICARE, OTHER, SELFPAY ==
[2021-07-21 09:41] VITALS: BP 144/54; PULSE 60; RESP 16; TEMP 36.9; O2SAT 100; BMI 22.4
[2021-07-21] MEDS: Lactated Ringers 1,000 ML 15 ML IV (09:47)
--- NOTE | 2021-07-21 10:10 | HP.PCM_ITS ---
History and Physical Date of Admission: 07/21/21 Date of Service: 07/09/21 MR#:[id number]: JABIER ATWOODRep #:[id number] Provider:Alexandra Walden/Sex: 81/F [facility] Vital Signs 07/09/21 13:10 Height 5 ft 2 in Weight: 124 lb BMI 22.6 BP 136/69 H Blood Pressure Location Rt brachial Position Sitting Respiration 16 Pulse 68 Pulse Source Monitor Temp 97.6 F L Temp Source Temporal Pulse Oximetry (%) 100 Oxygen Delivery Method room air Intake Visit Reasons: PORT PLACEMENT Chief Complaint: port placement First Aid Nurse Required: No Is patient in pain?: No Allergies codeine Allergy (Severe, Verified 07/09/21 14:42) Itching itraconazole [From Sporanox] Adverse Reaction (Severe, Verified 07/09/21 14:42) Hives metronidazole [From Flagyl] Adverse Reaction (Severe, Verified 07/09/21 14:42) nausea Medications cholecalciferol (vitamin D3) [Vitamin D3] 10,000 unit PO DAILY 12/29/20 [History Confirmed 07/09/21] bisacodyl 5 mg tablet,delayed release 5 mg PO ONCE PRN tab 06/17/21 [History Confirmed 07/09/21] fluticasone propionate 50 mcg/actuation nasal spray,suspension 1 spray INTRANASAL DAILY PRN 06/17/21 [History Confirmed 07/09/21] magnesium oxide 400 mg PO DAILY 06/17/21 [History Confirmed 07/09/21] polyethylene glycol 3350 17 gram/dose oral powder 17 g PO DAILY PRN 06/17/21 [History Confirmed 07/09/21] potassium bicarbonate-citric acid 20 mEq effervescent tablet 20 meq PO DAILY 06/17/21 [History Confirmed 07/09/21] amlodipine 2.5 mg tablet tablet PO 06/19/21 [History Confirmed 07/09/21] methocarbamol 500 mg tablet 500 mg PO QHS 06/19/21 [History Confirmed 07/09/21] tizanidine 4 mg tablet 2 mg PO tab 06/19/21 [History Confirmed 07/09/21] tumeric 100 mg-mojgan 150 mg-olive 50 mg-oreg 150 mg-caprylate capsule cap PO 06/19/21 [History Confirmed 07/09/21] vitamin E (dl, acetate) 45 mg (100 unit) capsule 45 mg PO DAILY 06/19/21 [History Confirmed 07/09/21] lidocaine-prilocaine 2.5 %-2.5 % topical cream 1 applic TOPICAL ONCE PRN 30 Days #30 g 07/09/21 [Rx Confirmed 07/09/21] ondansetron 8 mg disintegrating tablet 8 mg PO Q8H PRN #30 tab 07/09/21 [Rx Confirmed 07/09/21] PFSH Medical History Encounter for education Smoker Surgical History H/O cataract removal with insertion of prosthetic lens History of hysterectomy Hx of section Family History Daughter Cancer Sister Diabetes Myocardial infarction Brother Diabetes Social History household members: none Smoking Status: Former smoker alcohol intake: current alcohol intake frequency: holidays/special occasions only substance use type: does not use what type of physical activity do you participate in: walking michael/adventism: [employer] HPI HPI HPI: JABIER ATWOOD, is a 81 F who presents to the office today for discussion about port for chemotherapy due to 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 Patient previously underwent sigmoid resection with a colostomy at [facility]. Patient is scheduled to follow-up for possible liver resection after chemotherapy. ROS General General: Yes colon cancer; No weight change, appetite, fatigue or breast cancer HEENT HEENT: No difficulty swallowing, eye injury, eye surgery, swollen glands or hoarseness Endo Endocrine: No thyroid disease, diabetes mellitus, thyroid cancer, Hair loss, heat intolerance or cold intolerance Skin Skin: No rash or changing moles Musc Musculoskeletal: Yes back problems; No arthritis, rheumatoid arthritis, gout or joint pain Additional Details: Herniated discs, gets injections. Has had some n/t in feet since starting Cardio Cardiovascular: Yes murmur and high blood pressure; No pacemaker, heart disease, atrial fibrillation, heart attack, heart stent, palpitations, shortness of breat with exertion or chest pain Psych Psychiatric: No depression, anxiety or hearing voices Resp Respiratory: No shortness of breath, No sleep apnea, No cough, No COPD, No asthma, No emphysema and No wheezing Gastro Gastrointestinal: No abdominal pain, No nausea or vomiting, No diarrhea, No constipation, No blood in stool, No acid reflux, Yes hemorrhoids, No ulcers, No gallbladder problem and No black,tarry stools Roland Hematologic: No blood thinners, No blood disorders, No bleeding, No anemia and No blood clots Neuro Neurologic: No abnormal speech, No confusion and Yes tingling Exam Const General: cooperative, healthy appearing, comfortable and no acute distress Neck Neck: normal visual inspection Chest Other: Normal palpation of the upper chest bilaterally and neck. Resp Effort & Inspection: normal respiratory effort Cardio Rate: regular rate GI Inspection: non-distended Palpation: soft Skin General: no rashes or lesions noted Neuro General: patient oriented x3 Psych Affect: normal affect COVID (Procedure Consent) Procedure Criteria Procedure Criteria: Yes Elective The surgeon/proceduralist and patient have discussed in detail the risk of exposure to and/or potential harm posed by the COVID-19 virus with having a surgery/procedure at this time versus the risk of delaying the surgery/procedure. It is not possible to know either the risk of delaying the surgery or procedure or chance of getting an infection with perfect accuracy, but a joint decision was made between the patient and the surgeon/proceduralist to proceed at this time with the scheduled surgery/procedure as indicated on the consent form. Assessment and Plan Assessment and Plan (1) Encounter for insertion of venous access port: Status: Acute (2) Cancer of sigmoid colon: Status: Acute Comment: S/P sigmoid resection. Has Liver lesions suggestive of metastatic disease. Plan - Dr. Yola Trotter MD: Patient is unsure if she does want a port placement did discuss with patient in order to get the IV chemotherapy she would need either a PICC line or a port. Did also discuss what a PICC line placement would involve. It also states that the PICC line would be an increased risk of infection and could be a little more difficult to take care of. Patient was accompanied by her son to the appointment. They will plan to talk with their oncologist at [facility] as well as Dr. Santiago to find out if there may be options other than IV. Patient or the son will reach out to let us know if she changes her mind and would like the port placed as it seems patient needs a little more time to think about it. I have discussed above with the patient- Port-a-Cath placement. Right possible left Patient has been counseled as to the risks/benefits of the procedure. I have explained the risks of the surgery, including but not limited to: infection, bleeding, injury to any blood vessels/nerves, injury to lungs (such as pneumothorax or hemothorax and need for chest tube), not having any access, nonfunctioning of port due to thrombosis, infection of port, etc. the patient understands and they will contact us if they would like to proceed. I have answered all the patient's questions to the patient?s satisfaction and the patient has no further questions. Yola Trotter M.D. Pager: [phone] [facility] [address] [place] [address], [address] [place] [id number] Office: [phone] Coding Level of Care Code Off vis,new,level 3 Diagnoses Encounter for insertion of venous access port Z45.2 Cancer of sigmoid colon C18.7 07/10/21 1015<Electronically signed by Yola Trotter MD>Date Yola Trotter MD
[2021-07-21] MEDS: Lidocaine 1% /Epi 1:100 (20ml) 20 ML Vial (10:46)
[2021-07-21] MEDS: Bupivacaine Mpf 0.5% 30 ML VIAL (10:46)
--- NOTE | 2021-07-21 11:03 | RAD_ITS ---
STUDY: X-RAY CHEST REASON FOR EXAM: Female, 81 years old. Port -- pacu TECHNIQUE: Single AP portable view of the chest. COMPARISON: Comparison is made with prior study dated 02/14/2021. FINDINGS: A right-sided portacatheter is in place. The tip is at the junction of the superior vena cava and right atrium. EKG electrodes are seen. There is hyperinflation of the lungs consistent with chronic obstructive lung disease (COPD). There is no demonstrated pleural abnormality. Normal size heart. Normal mediastinum and sherrie. Normal visualized pulmonary arteries. There is atherosclerotic calcification of the aortic arch with tortuosity. Normal visualized thoracic spine. Normal visualized ribs, clavicles, and shoulders. There is no demonstrated abnormality of the visualized soft tissue structures of the upper abdomen. RAD/CXR for Line Placement IMPRESSION: The tip of the right carol catheter is at the junction of the superior vena cava and right atrium. Electronically Signed: Fausto Cagle MD at 12:02 EST , Service support ,
--- NOTE | 2021-07-21 11:04 | PCM.OPRPT ---
Report of Operation Date of Procedure: 07/21/21 Pre-Operative Diagnosis: Z45.2, metastatic colon cancer Post-Operative Diagnosis: Same Surgery/Procedure Performed:: 1. Placement of right IJ Port-A-Cath 2. Use of fluoroscopy 3. Use of ultrasound. Surgeon: Yola Trotter Type of Anesthesia: Local MAC Anesthesiologist: Avinash Mitchell Special Medications: Ancef 2 g IV x1 Specimen's removed: none Estimated Blood Loss (mL): < 10 cc Description of Procedure: After informed consent was given, the patient was brought to the operating room and placed in the supine position. Appropriate time out protocol was followed. Patient was then given IV conscious sedation for anesthesia. The patient's right upper chest and neck were then prepped with a surgical skin preparation and sterile surgical drapes were placed. After proper landmarks were ascertained, the skin at the upper right chest area was then infiltrated with 1:1 mixture of 1% lidocaine with epinephrine and 0.5% marcaine. A needle trocar was then inserted into the right internal jugular vein with ultrasound guidance-multiple vessels were viewed with u/s and the right IJ was chosen-- and there was good aspiration of venous blood. A wire was then threaded into the needle trocar and this was visualized under fluoroscopy to ensure that the wire was in the superior vena cava. Once this was done, then the needle trocar was removed. A small skin zenaida was made with an 11 blade knife at the wire entrance site. The dilator with the introducer sheath attached was then placed over the wire into the right internal jugular vein via the Seldinger technique and this was visualized under fluoroscopy. The dilator and sheath were in proper position as visualized by fluoroscopy. A subcutaneous pocket was then created caudad to the catheter insertion site. A transverse skin incision was made after the skin and subcutaneous tissues were infiltrated with local anesthetic. Blunt dissection was then used to create a space large enough for placement of the subcutaneous port. The catheter was then tunneled into the subcutaneous pocket. The wire and dilator were then removed. The catheter was then threaded into the introducer sheath and was positioned with its tip at the junction of the superior vena cava and the right atrium as visualized under fluoroscopy. The excess catheter was transected. The catheter was then attached to the subcutaneous port using manufacturers guidelines. The catheter was flushed with a heparin saline mixture prior to placement. Hemostasis was carefully controlled with electrocautery. The port was sutured to the subcutaneous fascia using 2-0 Vicryl suture at two sites. The port was then placed in the subcutaneous pocket. The incision were reapproximated with interrupted subdermal 3-0 vicryl sutures. The skin was reapproximated with 3-0 nylon suture in a interrupted fashion. Steristrips were used for reinforcement of the skin closure at IJ insertion site and a sterile opsite dressings were applied. The patient tolerated the procedure well. Grafts/Implants Used: [employer] PowerPort isp M.[employer].I. 6Fr Lot lot [id number]
[2021-07-21 11:08] VITALS: BP 112/47; BP 144/54; PULSE 75; RESP 18; TEMP 35.9; O2SAT 99
[2021-07-21 11:10] VITALS: BP 105/52; BP 144/54; PULSE 70; RESP 16; O2SAT 97
[2021-07-21 11:20] VITALS: BP 124/58; BP 144/54; PULSE 65; RESP 16; O2SAT 100
[2021-07-21 11:25] VITALS: BP 108/56; BP 144/54; PULSE 57; RESP 16; TEMP 36.1; O2SAT 100
--- NOTE | 2021-07-21 11:50 | EX.PCM.DISCH ---
Discharge Instructions Procedure Port-A-Cath Diet Discharge Diet: Light diet - advance as tolerated Activity May shower in (days): 5 (Keep port site clean and dry x5 days. Neck incision okay to get wet after 1 day. Okay to lower shower and upper sponge bath. OR okay to taper off port site with a Ziploc bag to shower) Lifting Restrictions: No lifting > 15 pounds for 3 days with the arm on the side of the port Dressing / Incision Call your doctor if your incision/area has: Continuous Slow Oozing, Sudden Increased Bleeding, Increased Pain/ Swelling, Increased Redness, Foul Smelling Discharge and Swelling at the incision site Call your doctor if you observe: Fever of 101 or Higher Change Dressing in: 2 days Follow Up Care Please Follow Up With: Yola Trotter MD When: In 10 days for permanent suture removal?call office for appointment Test Results: Test results from this visit will be discussed in further detail at your follow-up appointment, if applicable. Discharge Plan Admission Attending Provider: Yola Trotter Primary Care Provider: Guido Lau Discharge Orders/Prescriptions Prescriptions: New hydrocodone-acetaminophen 5-325 mg tablet 1 tab PO Q6H PRN (Reason: pain) 3 Days Qty: 5 RF: 0 Continued magnesium oxide 400 mg magnesium capsule 400 mg PO DAILY RF: 0 Effer-K 20 mEq tablet, effervescent 20 meq PO DAILY RF: 0 amlodipine 2.5 mg tablet 5 mg PO DAILY RF: 0 vitamin E (dl, acetate) 45 mg (100 unit) capsule 45 mg PO DAILY RF: 0 bnmqvmp-wmld-mtbto-oreg-capryl 100 mg-150 mg- 50 mg-150 mg capsule 1 cap PO DAILY RF: 0 tizanidine 4 mg tablet 2 mg PO DAILY PRN (Reason: muscle relaxer) RF: 0 lidocaine-prilocaine 2.5-2.5 % cream 1 applic topical ONCE PRN (Reason: port access) 30 Days Qty: 30 RF: 2 ondansetron 8 mg tablet,disintegrating 8 mg PO Q8H PRN (Reason: nausea and vomiting) Qty: 30 RF: 2 cholecalciferol (vitamin D3) [Vitamin D3] 125 mcg (5,000 unit) Tablet 10,000 unit PO DAILY RF: 0 docusate sodium 50 mg Capsule 50 mg PO DAILY RF: 0 milk thistle 200 mg Capsule 200 mg PO BID RF: 0 Referrals / Follow Up: Guido Lau MD [Primary Care Provider] - Disposition Disposition (needs filled in before D/C Order can be placed): Home, Self Care
[2021-07-21 12:25] VITALS: BP 118/44; BP 144/54; PULSE 67; RESP 16; TEMP 36.4; O2SAT 99
== END 2021-07-21 23:59 | disposition home or self-care (01) ==
LOC: SDC 09:14 → AC 09:17
PROVIDERS: PCP Family Medicine; Referring Provider Surgery; Visit Provider Surgery
PROC: (CPT 36561; principal; 2021-07-21 10:35)
DX: Z45.2 Encounter for adjustment and management of vascular access device (principal); C18.7 Malignant neoplasm of sigmoid colon; Z87.891 Personal history of nicotine dependence; F41.9 Anxiety disorder, unspecified; G44.019 Episodic cluster headache, not intractable; Z87.19 Personal history of other diseases of the digestive system; M81.0 Age-related osteoporosis without current pathological fracture; E55.9 Vitamin D deficiency, unspecified; M19.90 Unspecified osteoarthritis, unspecified site; Z79.899 Other long term (current) drug therapy; Z90.49 Acquired absence of other specified parts of digestive tract
CPT/HCPCS: 36561; 00532; 71045; 77001; J7120; J2405

== ENCOUNTER 2022-06-15 17:36 | Outpatient (CLI) | payer MEDICARE, OTHER, SELFPAY | END 2022-06-15 23:59 | disposition home or self-care (01) | PROVIDERS: PCP Family Medicine; Visit Provider Family Medicine | DX: R68.89 Other general symptoms and signs (principal) | CPT/HCPCS: 87807 ==

== ENCOUNTER → 2022-09-10 | Outpatient (CLI) | payer MEDICARE, OTHER, SELFPAY ==
--- NOTE | 2022-09-10 13:06 | CDU_ITS ---
Reason For Study: other specific symptoms involving the ciculatory and respiratory systems Rt. Velocities/BP Lt. Velocities/BP Prox CCA 57.0/13.5 cm/sec. Prox CCA 89.4/17.9 cm/sec. Mid CCA 74.0/14.5 cm/sec. Mid CCA 67.4/16.8 cm/sec. Dist CCA 58.9/12.6 cm/sec. Dist CCA 50.9/13.5 cm/sec. Prox ICA 65.4/13.9 cm/sec. Prox ICA 64.2/17.6 cm/sec. Mid ICA 63.0/16.3 cm/sec. Mid ICA 192.6/47.4 cm/sec. Dist ICA 47.9/12.3 cm/sec. Dist ICA 87.2/20.1 cm/sec. Rt. ICA/CCA = .9. Lt. ICA/CCA = 2.9. Prox ECA 112.1/7.7 cm/sec. Prox ECA 119.5/9.0 cm/sec. Rt. Vert. 32.2/6.9 cm/sec. Lt. Vert. 48.7/10.2 cm/sec. Right Extracranial There is homogeneous, smooth atherosclerotic plaque noted in the right common carotid artery. There is heterogeneous, irregular atherosclerotic plaque noted in the right internal carotid artery. There is homogeneous, irregular atherosclerotic plaque noted in the right external carotid artery. Antegrade flow is noted in the right vertebral artery. Left Extracranial There is homogeneous, smooth atherosclerotic plaque noted in the left common carotid artery. There is heterogeneous, irregular atherosclerotic plaque noted in the left internal carotid artery. There is heterogeneous, irregular atherosclerotic plaque noted in the left external carotid artery. Antegrade flow is noted in the left vertebral artery. Procedure Carotid Duplex [id number]. This is a Carotid Duplex examination using B-mode, color flow and specral Doppler. The exam was diagnostic. Exam performed in department. VL/Carotid Duplex Ultrasound Interpretation Summary Mild (<50%) stenosis right extracranial internal carotid. Moderate (50-69%) stenosis left extracranial internal carotid. Patent and antegrade vertebrals bilaterally. Ordering Physician: Guido Lau Performed By: Moises Haynes RVT
== END | disposition home or self-care (01) ==
PROVIDERS: PCP Family Medicine; Visit Provider Family Medicine
DX: R09.89 Other specified symptoms and signs involving the circulatory and respiratory systems (principal)
CPT/HCPCS: 93880

== ENCOUNTER → 2022-12-24 | Outpatient (CLI) | payer MEDICARE, OTHER, SELFPAY ==
[2022-12-24 17:57] LABS: Absolute Lymphocyte Count 2.97 X10^3/uL (0.83-4.51); Absolute Neutrophil Count 4.6 X10^3/uL (2.0-7.7); Basophil# 0.09 X10^3/uL; Eosinophil# 0.13 X10^3/uL; Eosinophils% 1.5 % (0-5); Hematocrit 42.9 % (37-47); Hemoglobin 13.7 g/dL (12.0-15.0); Lymphocyte # 2.97 X10^3/ul (0.83-4.51); Lymphocyte % 34.4 % (19-41); Mean Corp Hgb Conc 31.9 g/dL (32-36); Mean Corpuscular Volume 94.1 fL (81-99); Mean Platelet Vol. 9.9 fl (6.2-12.0); Monocyte% 9.3 % (0-10); NRBC Flagged by Analyzer 0 % (0-5); Neutrophil # 4.61 X10^3/uL (2.7-7.7); Neutrophil % 53.5 % (47-70); Platelet Count 353 K/mm3 (150-450); RBC Distribution Width SD 52.2 fl (35.1-43.9); Red Blood Count 4.56 M/mm3 (4.2-5.4); White Blood Count 8.6 K/mm3 (4.4-11.0)
[2022-12-24 18:22] LABS: Erythrocyte Sedimentation Rate 16 mm/hr (0-30)
[2022-12-24 18:43] LABS: ALB/GLOB Ratio 0.8 RATIO (0.9-2.4); AST(SGOT) 25 U/L (15-37); Alanine Aminotransfer ALT/SGPT 35 U/L (13-56); Albumin, Serum 3.7 g/dL (3.2-5.0); Alkaline Phosphatase 104 U/L (45-117); Anion Gap 5 (5-15); BUN 18 mg/dL (7-18); BUN/Creat Ratio 19.1 RATIO (10-20); CRP < 2.90 mg/L (0.0-3.0); Calcium,Total 9.5 mg/dL (8.5-10.1); Chloride 107 mmol/L (98-107); Creatinine, Serum 0.94 mg/dL (0.55-1.02); EST Glomerular Filtration Rate 60 mL/min (>60); Est Glom Filt Rate - Afr Amer 73 mL/min (>60); Globulin 4.4 g/dL (2.2-4.2); Glucose 92 mg/dL (74-106); Potassium 4.4 mmol/L (3.5-5.1); Protein, Total 8.1 g/dL (6.4-8.2); Sodium Level 138 mmol/L (136-145)
== END | disposition home or self-care (01) ==
LOC: MTLAB 15:15
PROVIDERS: PCP Family Medicine; Referring Provider Family Medicine; Visit Provider Family Medicine
DX: R19.7 Diarrhea, unspecified (principal); R15.2 Fecal urgency
CPT/HCPCS: 36415; 80053; 84443; 85025; 85652; 86140

== ENCOUNTER → 2022-12-30 | Outpatient (CLI) | payer MEDICARE, OTHER, SELFPAY ==
--- NOTE | 2022-12-30 15:48 | US_ITS ---
INDICATION: elevated TSH EXAMINATION: Ultrasound US Thyroid (eg thyroid, parathyroid, parotid) TECHNIQUE: Mckeon scale and color doppler imaging was performed of the thyroid gland. COMPARISON: None. FINDINGS: RIGHT THYROID LOBE: 4.0 x 1.2 x 1.5 cm. Heterogeneous echotexture with normal vascularity. [No thyroid nodules are present. LEFT THYROID LOBE: 3.9 x 1.0 1.5 cm. Heterogeneous echotexture with normal vascularity. [No thyroid nodules are present. ISTHMUS: 0.2 cm. No thyroid nodules are present. Lateral to the right thyroid there is a 1.4 x 0.6 x 0.4 cm and 1.1 x 0.6 x 0.4 cm lymph node with symmetric cortex and fatty hilum Lateral to the left thyroid there is a 1.2 x 0.5 x 0.4 cm lymph node with symmetric cortex and fatty hilum US/Thyroid IMPRESSION: Heterogeneous thyroid parenchyma is nonspecific but can be seen with prior thyroiditis. No hyperemia or evidence of abscess formation. No focal thyroid nodularity. Bilateral nonspecific lymph nodes with reactive features. Electronically Signed: Coy Jordan MD at 11:45 EDT ,
== END | disposition home or self-care (01) ==
LOC: US 15:47
PROVIDERS: PCP Family Medicine; Referring Provider Family Medicine; Visit Provider Family Medicine
DX: R79.89 Other specified abnormal findings of blood chemistry (principal)
CPT/HCPCS: 76536

== ENCOUNTER → 2023-03-10 | Outpatient (CLI) | payer MEDICARE, OTHER, SELFPAY ==
[2023-03-10 12:57] LABS: Free T3 2.2 pg/mL (2.18-3.98); T4 Free Direct 0.91 ng/dL (0.76-1.46); Thyroid Stim Hormone (TSH) 5.87 uIU/mL (0.358-3.74)
== END | disposition home or self-care (01) ==
LOC: MFPLAB 10:31
PROVIDERS: PCP Family Medicine; Visit Provider Family Medicine
DX: R79.89 Other specified abnormal findings of blood chemistry (principal); I10 Essential (primary) hypertension
CPT/HCPCS: 36415; 84439; 84443; 84481

== ENCOUNTER → 2023-04-15 | Outpatient (CLI) | payer MEDICARE, OTHER, SELFPAY ==
--- NOTE | 2023-04-15 14:24 | CT_ITS ---
STUDY: CT CHEST, ABDOMEN T PELVIS WITH CONTRAST REASON FOR EXAM: Female, 83 years old. MONITOR COLON CANCER-IV ONLY. RADIATION DOSAGE (If Supplied By Facility): CTDIvol = ( 10.62 ) mGy, DLP = ( 829.41 ) mGycm TECHNIQUE: Transaxial imaging was performed following intravenous administration of IV 100mL Isovue-300. Individualized dose optimization techniques were used for this CT. COMPARISON: Comparison is made with prior CT scan of the abdomen dated December 29, 2020. FINDINGS: CHEST A right-sided Port-A-Cath is seen with the tip in the superior vena cava. Scarring at the lung apices more prominent on the right side. There is no demonstrated pleural abnormality. There are calcifications of the coronary arteries. Normal mediastinum. Normal hilar regions. Normal unenhanced pulmonary arteries. There is atherosclerotic calcification of the aortic arch. There are multi-level degenerative changes of the thoracic spine. ABDOMEN Normal liver. Normal gallbladder and extrahepatic biliary system. Normal spleen. Normal pancreas. Normal bilateral adrenal glands. Small cyst is seen in the upper pole of the right kidney. Mild degree of right hydronephrosis. Fullness of the left renal pelvis although no deanna hydronephrosis is seen. Incidental note is made of a left retroaortic renal vein. Normal visualized stomach. Normal small intestine. Anastomotic line is seen in the rectosigmoid colon. The appendix is visualized and appears normal. There is scattered atherosclerotic calcification of the abdominal aorta, without a demonstrated aneurysm. Normal inferior vena cava. Normal retroperitoneum. Normal abdominal wall. Moderate degree of disc space narrowing and degeneration with spondylosis at the L5-S1 level. PELVIS Normal urinary bladder. The patient is status post hysterectomy. There is no pelvic fluid. There is no pelvic lymphadenopathy or mass lesion. There is diffuse atherosclerotic calcification of the pelvic arteries. CT/CT Chest, Abd, Pel w/Contrast IMPRESSION: Status post resection and anastomosis in the region of the sigmoid colon. Mild bilateral fullness of the renal pelves and calyceal system. Electronically Signed: Fausto Cagle MD at 15:17 EDT ,
[2023-04-15] MEDS: 0.9 % NaCl (Sterile) Posiflush 10 mL IV (14:40)
[2023-04-15 14:53] LABS: CREATININE FINGERSTICK < 0.9 mg/dL (0.55-1.02); EGFR FINGERSTICK > 60.0000 mL/min (>60)
[2023-04-15 15:08] LABS: T4 Free Direct 1.06 ng/dL (0.76-1.46); Thyroid Stim Hormone (TSH) 2.27 uIU/mL (0.358-3.74)
[2023-04-17 05:08] LABS: Carcinoembryonic Antigen 2.3 ng/mL (0.0-4.7)
== END | disposition home or self-care (01) ==
LOC: CT 14:16
PROVIDERS: PCP Family Medicine; Referring Provider Internal Medicine Medical Oncology; Visit Provider Internal Medicine Medical Oncology
DX: C18.7 Malignant neoplasm of sigmoid colon (principal); E03.9 Hypothyroidism, unspecified
CPT/HCPCS: 36415; 71260; 74177; 82378; 84439; 84443; 84481; Q9967; A4216

== ENCOUNTER → 2023-07-27 | Outpatient (CLI) | payer MEDICARE, OTHER, SELFPAY ==
--- NOTE | 2023-07-27 12:53 | RAD_ITS ---
STUDY: X-RAY - ABDOMEN/PELVIS REASON FOR EXAM: Female, 83 years old. Constipation and diarrhea TECHNIQUE: Single AP view of the abdomen / pelvis. COMPARISON: Comparison is made with prior study February 14, 2001. FINDINGS: Normal visualized lung bases. There is an abundance of fecal material throughout the colon. The visualized liver, spleen and kidneys are grossly normal in size and morphology. Normal soft tissue structures. There are degenerative changes of the visualized lumbar spine. Osteoarthritis of both hip joints. RAD/Abdomen Single View IMPRESSION: Large amount of fecal material is seen in the colon. Electronically Signed: Fausto Cagle MD at 15:12 EST ,
[2023-07-27 15:52] LABS: Absolute Lymphocyte Count 2.87 X10^3/uL (0.83-4.51); Absolute Neutrophil Count 4.5 X10^3/uL (2.0-7.7); Basophil# 0.08 X10^3/uL; Basophil% 0.8 % (0-1); Eosinophil# 1.91 X10^3/uL; Eosinophils% 19.2 % (0-5); Hematocrit 42.6 % (37-47); Hemoglobin 13.8 g/dL (12.0-15.0); Lymphocyte # 2.87 X10^3/ul (0.83-4.51); Lymphocyte % 28.8 % (19-41); Mean Corp Hgb Conc 32.4 g/dL (32-36); Mean Corpuscular Hgb 30.6 pg (27.0-32.0); Mean Corpuscular Volume 94.5 fL (81-99); Mean Platelet Vol. 9.8 fl (6.2-12.0); Monocyte# 0.59 X10^3/uL; Monocyte% 5.9 % (0-10); NRBC Flagged by Analyzer 0 % (0-5); Neutrophil % 45.2 % (47-70); Platelet Count 393 K/mm3 (150-450); RBC Distribution Width CV 14.8 % (11.6-14.6); RBC Distribution Width SD 51.6 fl (35.1-43.9); Red Blood Count 4.51 M/mm3 (4.2-5.4)
[2023-07-27 16:17] LABS: Erythrocyte Sedimentation Rate 38 mm/hr (0-30)
[2023-07-27 16:25] LABS: Vitamin B12 431 pg/mL (211-911)
[2023-07-27 16:41] LABS: ALB/GLOB Ratio 0.9 RATIO (0.9-2.4); AST(SGOT) 25 U/L (15-37); Alanine Aminotransfer ALT/SGPT 25 U/L (13-56); Albumin, Serum 3.7 g/dL (3.2-5.0); Alkaline Phosphatase 108 U/L (45-117); Anion Gap 6 (5-15); BUN 13 mg/dL (7-18); BUN/Creat Ratio 13.8 RATIO (10-20); CRP 5.37 mg/L (0.0-3.0); Calcium,Total 9.6 mg/dL (8.5-10.1); Chloride 106 mmol/L (98-107); Creatinine, Serum 0.94 mg/dL (0.55-1.02); EST Glomerular Filtration Rate 60 mL/min (>60); Est Glom Filt Rate - Afr Amer 73 mL/min (>60); Free T3 1.8 pg/mL (2.18-3.98); Globulin 4.1 g/dL (2.2-4.2); Glucose 84 mg/dL (74-106); Potassium 4.4 mmol/L (3.5-5.1); Protein, Total 7.8 g/dL (6.4-8.2); Sodium Level 139 mmol/L (136-145); T4 Free Direct 1.11 ng/dL (0.76-1.46); Thyroid Stim Hormone (TSH) 3.49 uIU/mL (0.358-3.74)
[2023-07-28 08:44] LABS: PTHIN 24.9 pg/mL (18.4-80.1)
== END | disposition home or self-care (01) ==
LOC: MTLAB 12:52
PROVIDERS: PCP Family Medicine; Referring Provider Family Medicine; Visit Provider Family Medicine
DX: R53.83 Other fatigue (principal); I10 Essential (primary) hypertension; E03.9 Hypothyroidism, unspecified; K59.9 Functional intestinal disorder, unspecified
CPT/HCPCS: 36415; 74018; 80053; 82607; 82746; 83970; 84439; 84443; 84481; 85025; 85652; 86140

== ENCOUNTER → 2023-10-11 | Outpatient (CLI) | payer MEDICARE, OTHER, SELFPAY ==
--- NOTE | 2023-10-11 12:47 | CT_ITS ---
STUDY: CT CHEST, ABDOMEN T PELVIS WITH CONTRAST REASON FOR EXAM: Female, 83 years old. Monitor colon cancer RADIATION DOSAGE (If Supplied By Facility): CTDIvol = ( 11.82 ) mGy, DLP = ( 846.45 ) mGycm TECHNIQUE: Transaxial imaging was performed following intravenous administration of IV 100mL Isovue-300. Individualized dose optimization techniques were used for this CT. COMPARISON: Prior study dated: 04/15/2023 FINDINGS: CHEST Bilateral apical pleural fibrotic changes unchanged. Moderate chronic bronchiectatic changes in the right upper lobe. Stable vague 2 mm left upper lobe nodule. No focal infiltrate is seen. There is no demonstrated pleural abnormality. Normal heart and pericardium. There are calcifications of the coronary arteries. Normal mediastinum. Normal hilar regions. No evidence of central pulmonary embolism. There is atherosclerotic calcifications and tortuosity of the aortic arch and descending thoracic aorta. There are degenerative changes of the thoracic spine. ABDOMEN The visualized lung bases are unremarkable. The visualized portions of the heart are within normal limits. Normal liver. Normal gallbladder and extrahepatic biliary system. Normal spleen. Normal pancreas. Normal bilateral adrenal glands. Stable small simple cyst in the upper pole of the right kidney for which no further follow-up exam is needed. Dilated renal pelvises bilaterally partially due to extrarenal pelvis. Right renal hydronephrosis unchanged. Left retroaortic renal vein is again seen which is a normal variant. The stomach is suboptimally distended. Nonspecific fluid-filled small bowel loops without evidence of bowel obstruction. Fecal retention. Surgical anastomosis sutures in the rectosigmoid junction. The appendix is visualized and appears normal. There is diffuse atherosclerotic calcification of the abdominal aorta, without a demonstrated aneurysm. Normal inferior vena cava. Normal retroperitoneum. Normal abdominal wall. Normal osseous structures. PELVIS Normal urinary bladder. There is no pelvic fluid. There is no pelvic lymphadenopathy or mass lesion. There is absence of the uterus consistent with a prior hysterectomy. There is diffuse atherosclerotic calcification of the pelvic arteries. CT/CT Chest, Abd, Pel w/Contrast IMPRESSION: 1. No evidence of metastatic disease. 2. No significant change previous exam. 3. Fullness of the pelvicalyceal systems bilaterally unchanged. Electronically Signed: Bang Elliott MD at 14:49 EDT ,
[2023-10-11 13:11] LABS: CREATININE FINGERSTICK < 1.0 mg/dL (0.55-1.02); EGFR FINGERSTICK > 60.0000 mL/min (>60)
[2023-10-11 13:44] LABS: Absolute Neutrophil Count 4.4 X10^3/uL (2.0-7.7); Basophil# 0.07 X10^3/uL; Basophil% 0.9 % (0-1); Eosinophil# 0.27 X10^3/uL; Eosinophils% 3.5 % (0-5); Hematocrit 38.7 % (37-47); Hemoglobin 12.6 g/dL (12.0-15.0); Lymphocyte % 29.6 % (19-41); Mean Corp Hgb Conc 32.6 g/dL (32-36); Mean Corpuscular Hgb 30.2 pg (27.0-32.0); Mean Corpuscular Volume 92.8 fL (81-99); Mean Platelet Vol. 8.9 fl (6.2-12.0); NRBC Flagged by Analyzer 0 % (0-5); Neutrophil # 4.42 X10^3/uL (2.7-7.7); Neutrophil % 56.7 % (47-70); Platelet Count 384 K/mm3 (150-450); RBC Distribution Width CV 14.9 % (11.6-14.6); RBC Distribution Width SD 51.4 fl (35.1-43.9); Red Blood Count 4.17 M/mm3 (4.2-5.4); White Blood Count 7.8 K/mm3 (4.4-11.0)
[2023-10-11 14:01] LABS: AST(SGOT) 25 U/L (15-37); Alanine Aminotransfer ALT/SGPT 26 U/L (13-56); Albumin, Serum 3.8 g/dL (3.2-5.0); Alkaline Phosphatase 76 U/L (45-117); Anion Gap 7 (5-15); BUN 17 mg/dL (7-18); BUN/Creat Ratio 18.9 RATIO (10-20); Calcium,Total 9.4 mg/dL (8.5-10.1); Chloride 105 mmol/L (98-107); EST Glomerular Filtration Rate 63 mL/min (>60); Est Glom Filt Rate - Afr Amer 76 mL/min (>60); Globulin 3.9 g/dL (2.2-4.2); Glucose 82 mg/dL (74-106); LDH 197 U/L (84-246); Potassium 4.1 mmol/L (3.5-5.1); Protein, Total 7.7 g/dL (6.4-8.2); Sodium Level 140 mmol/L (136-145)
[2023-10-13 04:07] LABS: Carcinoembryonic Antigen 2.1 ng/mL (0.0-4.7)
== END | disposition home or self-care (01) ==
PROVIDERS: PCP Family Medicine; Referring Provider Internal Medicine Medical Oncology; Visit Provider Internal Medicine Medical Oncology
DX: C18.7 Malignant neoplasm of sigmoid colon (principal)
CPT/HCPCS: 36415; 71260; 74177; 80053; 82378; 83615; 85025; Q9967

== ENCOUNTER → 2024-04-10 | Outpatient (CLI) | payer MEDICARE, OTHER, SELFPAY ==
--- NOTE | 2024-04-10 12:47 | CT_ITS ---
STUDY: CT CHEST, ABDOMEN T PELVIS WITH CONTRAST REASON FOR EXAM: Female, 84 years old. MONITOR HX OF COLON CA RADIATION DOSAGE (If Supplied By Facility): CTDIvol = ( 13.23 ) mGy, DLP = ( 903.31 ) mGycm TECHNIQUE: Transaxial imaging was performed following intravenous administration of Oral and amp; IV Readi-CAT and amp; 100mL Isovue-300. Multiplanar coronal and sagittal images were reformatted. Individualized dose optimization techniques were used for this CT. COMPARISON: Comparison is made with prior study dated October 11, 2023. FINDINGS: CHEST Stable bilateral apical pleural scarring. Stable mild bronchiectasis in both lung apices more prominent on the right side. There is no demonstrated pleural abnormality. There are mild calcifications of the coronary arteries. Normal mediastinum. Normal hilar regions. Normal unenhanced pulmonary arteries. There is atherosclerotic calcification of the aortic arch. There are degenerative changes of the thoracic spine. Increased kyphosis. There is no demonstrated abnormality of the visualized upper abdomen. ABDOMEN Normal liver. Normal gallbladder and extrahepatic biliary system. Normal spleen. Normal pancreas. Normal bilateral adrenal glands. Stable bilateral hydronephrosis right greater than left. Stable simple cyst in the upper pole of the right kidney. Incidental note is made of a left retroaortic renal vein. Normal visualized stomach. Normal small intestine. Surgical anastomosis is one seen in the rectosigmoid junction. Marked amount of fecal material is seen in the right hemicolon. There is non-visualization of the appendix. There is scattered atherosclerotic calcification of the abdominal aorta, without a demonstrated aneurysm. Normal inferior vena cava. Normal retroperitoneum. Normal abdominal wall. Degenerative changes at the L4-L5 and L5-S1 levels. PELVIS Normal urinary bladder. The patient is status post hysterectomy. There is no pelvic fluid. There is no pelvic lymphadenopathy or mass lesion. There is diffuse atherosclerotic calcification of the pelvic arteries. CT/CT Chest, Abd, Pel w/Contrast IMPRESSION: Stable examination. Electronically Signed: Fausto Cagle MD at 12:31 EDT ,
[2024-04-10 13:19] LABS: CREATININE FINGERSTICK < 1.0 mg/dL (0.55-1.02); EGFR FINGERSTICK > 60.0000 mL/min (>60)
== END | disposition home or self-care (01) ==
LOC: CT 12:46
PROVIDERS: PCP Family Medicine; Referring Provider Internal Medicine Medical Oncology; Visit Provider Internal Medicine Medical Oncology
DX: C18.7 Malignant neoplasm of sigmoid colon (principal); C78.7 Secondary malignant neoplasm of liver and intrahepatic bile duct
CPT/HCPCS: 71260; 74177; Q9967

== ENCOUNTER → 2024-05-22 | Outpatient (CLI) | payer MEDICARE, OTHER, SELFPAY ==
[2024-05-22 14:02] LABS: Absolute Neutrophil Count 4.5 X10^3/uL (2.0-7.7); Basophil# 0.08 X10^3/uL; Basophil% 1.1 % (0-1); Eosinophil# 0.13 X10^3/uL; Eosinophils% 1.7 % (0-5); Hematocrit 41.4 % (37-47); Hemoglobin 13.4 g/dL (12.0-15.0); Lymphocyte % 31.6 % (19-41); Mean Corp Hgb Conc 32.4 g/dL (32-36); Mean Corpuscular Hgb 29.8 pg (27.0-32.0); Mean Corpuscular Volume 92.2 fL (81-99); Mean Platelet Vol. 8.9 fl (6.2-12.0); Monocyte# 0.48 X10^3/uL; Monocyte% 6.3 % (0-10); NRBC Flagged by Analyzer 0 % (0-5); Neutrophil # 4.49 X10^3/uL (2.7-7.7); Platelet Count 362 K/mm3 (150-450); RBC Distribution Width CV 14.4 % (11.6-14.6); RBC Distribution Width SD 48.6 fl (35.1-43.9); Red Blood Count 4.49 M/mm3 (4.2-5.4); White Blood Count 7.6 K/mm3 (4.4-11.0)
[2024-05-22 14:28] LABS: Vitamin B12 1461 pg/mL (211-911); Vitamin D,25 Hydroxy 74.6 ng/mL
[2024-05-22 14:39] LABS: ALB/GLOB Ratio 0.9 RATIO (0.9-2.4); AST(SGOT) 24 U/L (15-37); Alanine Aminotransfer ALT/SGPT 23 U/L (13-56); Albumin, Serum 3.8 g/dL (3.2-5.0); Alkaline Phosphatase 89 U/L (45-117); Anion Gap 8 (5-15); BUN 14 mg/dL (7-18); BUN/Creat Ratio 14.5 RATIO (10-20); Calcium,Total 9.6 mg/dL (8.5-10.1); Chloride 104 mmol/L (98-107); Creatinine, Serum 0.96 mg/dL (0.55-1.02); EST Glomerular Filtration Rate 58 mL/min (>60); Est Glom Filt Rate - Afr Amer 71 mL/min (>60); Globulin 4.4 g/dL (2.2-4.2); Glucose 102 mg/dL (74-106); Magnesium 2.1 mg/dL (1.6-2.6); Phosphorus 3.2 mg/dL (2.5-4.9); Potassium 3.8 mmol/L (3.5-5.1); Protein, Total 8.2 g/dL (6.4-8.2); Sodium Level 137 mmol/L (136-145)
[2024-05-25 12:09] LABS: Vitamin D 1,25-Dihydroxy 54.3 pg/mL (24.8-81.5)
[2024-05-27 08:12] LABS: Copper, Serum or Plasma 223 ug/dL (80-158); Vitamin A, Retinol 47.3 ug/dL (22.0-69.5); Zinc, Plasma or Serum 130 ug/dL (44-115)
== END | disposition home or self-care (01) ==
LOC: RAD 13:37
PROVIDERS: PCP Family Medicine; Referring Provider Internal Medicine Gastroenterology; Visit Provider Internal Medicine Gastroenterology
DX: K59.00 Constipation, unspecified (principal); E05.90 Thyrotoxicosis, unspecified without thyrotoxic crisis or storm; E55.9 Vitamin D deficiency, unspecified; D64.9 Anemia, unspecified
CPT/HCPCS: 36415; 74018; 80053; 82306; 82525; 82607; 82652; 82746; 83735; 84100; 84425; 84590; 84630; 85025

== ENCOUNTER → 2024-05-24 | Outpatient (CLI) | payer MEDICARE, OTHER, SELFPAY ==
--- NOTE | 2024-05-24 15:20 | RAD_ITS ---
STUDY: X-RAY - ABDOMEN/PELVIS REASON FOR EXAM: Female, 84 years old. constipation TECHNIQUE: Frontal view COMPARISON: May 22 FINDINGS: Normal visualized lung bases. There is an unremarkable bowel gas pattern. Colonic fecal retention. There is no demonstrated free abdominal air. The visualized liver, spleen and kidneys are grossly normal in size and morphology. Normal soft tissue structures. Generalized osteopenia. RAD/Abdomen Single View IMPRESSION: Colonic fecal retention. Electronically Signed: Kike Rios DO at 9:35 EST ,
== END | disposition home or self-care (01) ==
LOC: RAD 15:01
PROVIDERS: PCP Family Medicine; Referring Provider Internal Medicine Gastroenterology; Visit Provider Internal Medicine Gastroenterology
DX: K59.00 Constipation, unspecified (principal)
CPT/HCPCS: 74018

== ENCOUNTER 2024-05-30 13:25 | Outpatient (RCR) | payer MEDICARE, OTHER, SELFPAY ==
--- NOTE | 2024-05-30 14:15 | HP.OTEVAL_ITS ---
Patient's Visit Information Visit Information Visit Information: JABIER ATWOOD is a 84 year old F, referred to Occupational Therapy by Dr. Pierce Brooks, DO, with a diagnosis of trigger finger R, primary OA R hand. Date of Evaluation: 05/30/24 Occupational Therapist: Kaykay Quispe Subjective Subjective: This 84 year old female arrives with dx of R hand RF trigger finger release as well as R hand primary OA. trigger finger release complete approx 4 months ago. pt states surgery went well however she randomly woke up to it swollen and painful this past month. Dr brooks provided injection last week to finger and now swelling reduced pain gone and ROM back to normal. pt does not require OT at this time as pt back to baseline. provided pt with exercises to keep finger moving and prevent swelling. Objective Objective/Observation: pt arrives doing well R hand RF swelling appears to be under control no coloration to finger noted during eval slight bend at PIP joint ROM Wrist: wfl CMC: wfl MP: wfl IP: wfl Radial Abduction: wfl Palmar Abduction: wfl PIP: R hand -4/wfl Strength Tea Bag Machine Tender: R 40# L 50# Lateral Pinch: R and L 8# Tripod Pinch: R and L 5# Lymphedema (Circumferential Measure) Upper Exremity Comments: R and L PIP of RF at 6 cm Sensation Sensation Comments: denies abnormality Rehabilitation General Assessment: This 84 year old female arrives with dx of R hand trigger finger as well as primary OA of R hand RF. Pt with recent trigger finger release approx 4 months ago and states had an episode of swelling pain and decreased ROM. Pt saw vicente last week who did injection and pt swelling now gone pain is gone and ROM back to baseline. Pt not currently requiring OT services due to functioning at baseline. exercises provided to prevent future swelling episodes as well as ed on gentle massage to A1 kathy region to prevent stiffness. pt in agreeance. Rehabilitation Potential: Good Anticipated Interventions Other Interventions: n/a Visit Plan Frequency: none Duration: none General Plan: none TEXT: Thank you for the opportunity to evaluate your patient. For Medicare and Medicare HMO plans, please review the plan of care and approve it. It will need to be FAXED BACK to us at [phone] for Medicare purposes. Please let me know if there are questions or concerns regarding this plan of c are. Physician Signature: Date:
--- NOTE | 2024-07-11 14:30 | HP.OT.NRP ---
Patient Information Patient Information: JABIER ATWOOD was seen in my office for initial evaluation on 05/30/24. The following Plan of Care was established for this patient: POC Established Initial Frequency: none Initial Duration: none Anticipated Interventions Other Interventions: n/a Last Seen Last Seen: This patient was last seen in our office 05/30/24. Pertinent comments regarding their Occupational therapy will appear below: This 84 year old female seen for OT with dx of trigger finger as well as primary OA. Pt seen for eval then pt does not schedule any additional visits. discharge at this time due to lapse in time of services. At this point I will be discontinuing this patient from occupational therapy. I would be happy to see this patient again in the future if found appropriate by the physician. Thank you! Kaykay Quispe
== END 2024-05-30 19:00 | disposition home or self-care (01) ==
LOC: OT 13:25
PROVIDERS: PCP Family Medicine; Referring Provider Student in an Organized Health Care Education/Training Program; Visit Provider Student in an Organized Health Care Education/Training Program
DX: M65.341 Trigger finger, right ring finger (principal); M19.041 Primary osteoarthritis, right hand
CPT/HCPCS: 97165

== ENCOUNTER → 2024-07-17 | Outpatient (CLI) | payer MEDICARE, OTHER, SELFPAY ==
--- NOTE | 2024-07-17 09:16 | NM_ITS ---
CLINICAL: 84-year-old female with history of abdominal pain. SEMI-SOLID PHASE 99m Tc SULFUR COLLOID GASTRIC EMPTYING STUDY COMPARISON: CT of the chest abdomen pelvis report 04/10/2024 FINDINGS: The patient was administered 1.1 mCi of 99m Tc sulfur colloid mixed with oatmeal and consumed per os. Image acquisitions in the anterior-posterior projections were obtained for 60 minutes. There is prompt visualization of the stomach. There is no gastroesophageal reflux identified. The T ? linear fit was calculated to be 22.80 minutes, (Normal: 12-56 minutes). NM/Gastric Emptying Study IMPRESSION: 1. NORMAL 99m Tc sulfur colloid semi-solid phase (oatmeal) gastric emptying imaging examination. A. There is normal and preserved semi-solid phase gastric emptying compared to normal controls. (Ailyn et al, J Nucl Med Tech 38: 186, 2010). Electronically Signed: Julio Vang DO at 22:02 EST ,
== END | disposition home or self-care (01) ==
PROVIDERS: PCP Family Medicine; Referring Provider Internal Medicine Gastroenterology; Visit Provider Internal Medicine Gastroenterology
DX: K59.00 Constipation, unspecified (principal)
CPT/HCPCS: 78264; A9541

== ENCOUNTER 2024-07-24 06:56 | Day surgery (SDC) | payer MEDICARE, OTHER, SELFPAY ==
[2024-07-24] VITALS (8 sets, daily range): BP systolic 89–160; BP diastolic 58–72; PULSE 72–99; RESP 14–18; TEMP 36.2–36.7; O2SAT 96–99; BMI 24.9
--- NOTE | 2024-07-24 07:16 | HP.PCM_ITS ---
HPI - General General Date of Admission: 07/24/24 Date of Service: 07/24/24 Chief Complaint: History of colon cancer HPI Narrative JABIER ATWOOD, is a 84 F who presents for follow-up colonoscopy today. *[facility] established 11.4.24 pt reports a hx of colon cancer, partial colon resection and enterostomy reversal. Pt reports that she was having abdominal cramping a few months ago, but is no longer having symptoms. Last colonoscopy was in 2020. PFSH Medical History Wears glasses Thyroid disease Arthritis Bladder disease Cancer History of irregular heartbeat Tuberculosis Malaise and fatigue Diverticulosis large intestine w/o perforation or abscess w/o bleeding Bruit Fecal urgency Diarrhea Abdominal pain Elevated TSH Hypothyroidism Fatigue Bowel dysfunction Trigger finger Wears hearing aid COVID Cancer Easy bruising Migraine headache Herniated disc Heartburn Former smoker Hypertension Encounter for education Ganglion, unspecified wrist Smoker Home Medications ?Medication ?Instructions ?Recorded ?Last Taken ?Type amlodipine 2.5 mg tablet 5 mg PO QHS 06/19/21 07/22/24 History levothyroxine 25 mcg capsule 25 mcg PO QDAY 05/15/24 07/23/24 History Allergy/AdvReac Type Severity Reaction Status Date / Time codeine Allergy Severe Itching Verified 07/24/24 07:10 itraconazole (From Sporanox) AdvReac Severe Hives Verified 07/24/24 07:10 metronidazole (From Flagyl) AdvReac Severe nausea Verified 07/24/24 07:10 Family History Daughter Cancer Sister Diabetes Myocardial infarction Brother Diabetes Surgical History S/P ureteral stent placement History of resection of liver Enterostomy History of colonoscopy History of partial colectomy H/O cataract removal with insertion of prosthetic lens Hx of section History of hysterectomy Social History household members: none Smoking Status: Former smoker alcohol intake: current alcohol intake frequency: holidays/special occasions only substance use type: does not use what type of physical activity do you participate in: walking michael/alevism: Advent ROS Constitutional Constitutional: Denies fatigue, fever(s), poor appetite, weight gain or weight loss Gastrointestinal Gastrointestinal: Denies belching, bloating, change in bowel habits, change in stool character, chewing difficulty, coffee ground emesis, constipation, cramping, diarrhea, dyspepsia, dysphagia, early satiety, excessive flatus, fecal incontinence, heartburn, hematemesis, hematochezia, hemorrhoids, loose stools, melena, nausea, odynophagia, rectal bleeding, tenesmus, vomiting or weight changes Vital Signs Vital Signs Vital Signs: 07/24/24 07:11 07/24/24 07:11 Temperature 97.1 F L Temperature Source Temporal Pulse Rate 99 Respiratory Rate 16 Respiratory Pattern Normal Blood Pressure 160/72 H Blood Pressure Mean 101 Blood Pressure Source Monitor Blood Pressure Position Sitting Blood Pressure Location Left Arm Pulse Ox 97 Oxygen Delivery Method Room Air Weight Weight: 132 lb Body Mass Index (BMI) 24.9 Physical Exam Const alert, oriented x3 and no apparent distress General Appearance: cooperative and comfortable HEENT normocephalic, external ears normal and external nose normal HEENT Narrative: Difficulty hearing. Eyes PERRL, conjunctivae normal and no scleral icterus Neck supple Lymph Lymphatic: no lymphadenopathy noted Resp normal respiratory effort, no use of accessory muscles and clear to auscultation bilaterally Cardio regular rate, regular rhythm, S1 normal heart sound, S2 normal heart sound and no murmurs GI normal to inspection, nondistended, normoactive bowel sounds GI Narrative: + scars no CVA tenderness Extremity normal to inspection and no clubbing, cyanosis or edema Neuro oriented x3, CN's II-XII intact bilaterally and moves all extremities Psych mental status grossly normal Assessment & Plan Assessment/Plan (1) Cancer of sigmoid colon: PLAN: 84-year-old who originally presented with abdominal pain and at outside institution. She underwent a CT scan abdomen pelvis in 2000 and it showed prominence of the distal sigmoid colon suggestive of malignancy. Her CEA was 5.6 at the time. She underwent colonoscopy in 03/31/2021 that showed obstructing sigmoid mass at 22 cm from the anal verge. Biopsies that turned out to be invasive adenocarcinoma. She had a CT scan of the chest abdomen pelvis that showed a 0.9 cm nodule in the left lateral lobe of the liver. MRI showed multiple small nodules in the liver suggestive of metastatic disease. She underwent robotic resection of the sigmoid colon with end colostomy and en bloc resection of the bladder wall. The pathology ended up being a T3 N0, 0 out of 27 lymph nodes positive. This was done back at [facility]. She had a reversal of her colostomy back in 2021. She did undergo chemotherapy with 5-FU and leucovorin. She has had surveillance imaging in 10/30/2023 and in 03/31/2024 without any sign of recurrent disease. She comes currently with some intermittent abdominal pain and bloating. At this time she is having bowel movements with a usage of [id number] stool softeners. Previously she was experiencing worsening constipation. She does get intermittent urgency without fecal incontinence. She will undergo surveillance colonoscopy due to worsening constipation and h istory of colon cancer. She was explained alternatives, risk, benefits include not withstanding bleeding, infection, sepsis, perforation, need for charge and . She have an ASA of 3.
--- NOTE | 2024-07-24 07:32 | PRE.ANES_ITS ---
ASA Classification* ASA Classification ASA Classification: 2 Assessment & Plan Anesthesia* Anesthesia Assessment Anesthesia Assessment: Discussed sedation and/or anesthesia options, risks, benefits, and alternatives with patient/parents/legal guardian/POA. Questions invited. The patient/parents/legal guardian/POA seems to understand and agrees to proceed with anesthesia plan. Reviewed the physical assessment, medical history, allergy history and patient home medications list prior to surgery/procedure/anesthetic and documented any changes. Performed airway and anesthesia risk assessments. Anesthesia Type Anesthesia Type: MAC Anesthesia Focused Assessment* Temperature: 97.1 F Pulse Rate: 99 Blood Pressure: 160/72 Respiratory Rate: 16 Pulse Ox: 97 Airway Assessment Mouth opens: >3 cm Mallampati Score: II Focused Labs Anesthesia Preop lab: CBC WBC 7.6 K/mm3 (4.4-11.0) 05/22/24 13:41 RBC 4.49 M/mm3 (4.2-5.4) 05/22/24 13:41 Hgb 13.4 g/dL (12.0-15.0) 05/22/24 13:41 Hct 41.4 % (37-47) 05/22/24 13:41 Plt Count 362 K/mm3 (150-450) 05/22/24 13:41 CHEMISTRY Potassium 3.8 mmol/L (3.5-5.1) 05/22/24 13:41 Sodium 137 mmol/L (136-145) 05/22/24 13:41 Magnesium 2.1 mg/dL (1.6-2.6) 05/22/24 13:41 Phosphorus 3.2 mg/dL (2.5-4.9) 05/22/24 13:41 BUN 14 mg/dL (7-18) 05/22/24 13:41 Creatinine 0.96 mg/dL (0.55-1.02) 05/22/24 13:41 Glucose 102 mg/dL (74-106) 05/22/24 13:41 TSH 3.49 uIU/mL (0.358-3.74) 07/27/23 12:59 COAG Pre-Assessment Diagnosis/Proposed Procedure Planned Operative Procedure(s): COLONOSCOPY Anesthesia History 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 When Was Last Pacemaker Check QUESTION #4 FULL TEXT: You/Your Family Experience fever (hyperthermia) with Anesthesia Last Oral Intake Last Oral intake: Last Oral Intake NPO since 00:00 07/24/24 07:11 Meds taken in AM with sips of water? 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 Female Yes 07/20/24 12:40 HX of Motion Sickness No 07/20/24 12:40 HX of N/V After Surgery No 07/20/24 12:40 Non-Smoker Yes 07/20/24 12:40 Duration of Surgery greater No 07/20/24 12:40 than 60 minutes Number of Risk Factors 2 07/20/24 12:40 PONV Score Moderate Risk 07/20/24 12:40 Height & Weight Height & Weight: Anesthesia: Height & Weight Height 5 ft 1 in 07/24/24 07:11 Weight: 59.874 kg 07/24/24 07:11 Body Mass Index (BMI) 24.9 07/24/24 07:11 Respiratory Assessment Respiratory Assessment - ceramic tile setter: Respiratory Tract Infection Hx - ceramic tile setter Hx Respiratory Tract Infection No 07/20/24 12:40 STOP Sleep Apnea STOP Sleep Apnea - ceramic tile setter: STOP Sleep Apnea - ceramic tile setter Hx Hypertension Yes 07/20/24 12:40 Hx Sleep Apnea No 07/20/24 12:40 CPAP No 07/21/21 11:08 BIPAP Do you snore loudly (louder No 07/20/24 12:40 than talking or can be heard Do you often feel tired/ No 07/20/24 12:40 fatigued/ sleepy during daytime? Has anyone observed you stop No 07/20/24 12:40 breathing during sleep? STOP Results Negative 07/20/24 12:40 QUESTION #5 FULL TEXT : Do you snore loudly (louder than talking or can be heard through closed doors)? 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 Specify any problems Hx of Preganancy in last 3 No 07/20/24 12:40 Months Nurse Filling Out Transfusion [facility] 07/20/24 12:40 & Questions: Date: 07/20/24 07/20/24 12:40 Time: 12:53 07/20/24 12:40 Patient unable to answer at this time (ie. confused, unrespo /Reproduction History /Reproductive History - ceramic tile setter: /Reproductive Hx- ceramic tile setter Hx Now No 07/20/24 12:40 Gestational Age (in weeks): EDC: Hx Hx Para Hx Section SAB PFSH Medical History Wears glasses Thyroid disease Arthritis Bladder disease Cancer History of irregular heartbeat Tuberculosis Malaise and fatigue Diverticulosis large intestine w/o perforation or abscess w/o bleeding Bruit Fecal urgency Diarrhea Abdominal pain Elevated TSH Hypothyroidism Fatigue Bowel dysfunction Trigger finger Wears hearing aid COVID Cancer Easy bruising Migraine headache Herniated disc Heartburn Former smoker Hypertension Encounter for education Ganglion, unspecified wrist Smoker Home Medications ?Medication ?Instructions ?Recorded ?Last Taken ?Type amlodipine 2.5 mg tablet 5 mg PO QHS 06/19/21 07/22/24 History levothyroxine 25 mcg capsule 25 mcg PO QDAY 05/15/24 07/23/24 History Allergy/AdvReac Type Severity Reaction Status Date / Time codeine Allergy Severe Itching Verified 07/24/24 07:10 itraconazole (From Sporanox) AdvReac Severe Hives Verified 07/24/24 07:10 metronidazole (From Flagyl) AdvReac Severe nausea Verified 07/24/24 07:10 Family History Daughter Cancer Sister Diabetes Myocardial infarction Brother Diabetes Surgical History S/P ureteral stent placement History of resection of liver Enterostomy History of colonoscopy History of partial colectomy H/O cataract removal with insertion of prosthetic lens Hx of section History of hysterectomy Social History household members: none Smoking Status: Former smoker alcohol intake: current alcohol intake frequency: holidays/special occasions only substance use type: does not use what type of physical activity do you participate in: walking michael/samaritan: Roman Catholic Review of Systems (Anesthesia) ROS Narrative System reviewed and no additional complaints, except as documented.
--- NOTE | 2024-07-24 08:00 | COLBX_PTH ---
PATIENT: JABIER ATWOOD LOC: EN U#:[id number] AGE/SX: 84/F ROOM: RE07/24/[address]: Dr. Sher Dangelo DO : 1940 BED: DIS: 07/24/2024 SPEC #: [id number] RECD: 07/24/24 10:05 STATUS: TAD BEL #: [id number] DENZEL: 07/24/24 08:[address]: Sher Dangelo DEPT: SURGICAL PATHOLOGY RECD BY: Janiya Judd ENTERED: 07/24/24 10:48 SP TYPE: COLON BX CATRACHITA DR: Dr. Guido Lau MD Tissues: A - COLON BIOPSY B - Rectum, NOS Procedures: Surgery Specimen Level IV HEADER OPERATION: Colonoscopy, biopsy PRE-OP DIAGNOSIS: Cancer of sigmoid colon TISSUE SUBMITTED: A- Anastomosis site biopsy, B- Rectal polyp biopsy MICROSCOPIC DIAGNOSIS A. Anastomosis site, biopsy: Fragments of colonic mucosa with focal non-specific chronic inflammation and occasional small lymphoid nodules. B. Rectal polyp, biopsy: Hyperplastic colonic polyp. 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 Case has been reviewed in consultation with Dr. Vicente who concurs with the above diagnosis. IDC:SJ MICROSCOPIC DESCRIPTION Slides are reviewed. GROSS DESCRIPTION A. Received in fixative is one container labeled with the patient's name and designated Anastomosis biopsy. The specimen consists of multiple irregular fragments of light ibarra soft tissue that in aggregate measure 1.2 x 0.3 x 0.1 cm. The specimen is totally submitted in one cassette. B. Received in fixative is one container labeled with the patient's name and designated Rectal polyp biopsy. The specimen consists of one irregular fragment of light ibarra soft tissue that measures 0.4 x 0.3 x 0.2 cm. The specimen is totally submitted in one cassette. BW.mr 07/24/2024 TC:3 CPT:25155w2
--- NOTE | 2024-07-24 08:56 | OP.CCLET_ITS ---
07/24/2024 Guido Lau [address] [place] [address] Re : Colonoscopy procedure for Vanna Jayden Dear Dr. Lau This procedure was performed on Wednesday, July 24, 2024. My impressions and recommendations are as follows: Impressions : - Patent end-to-side colo-colonic anastomosis, characterized by healthy appearing mucosa, an intact staple line and visible sutures. Biopsied. - One 5 mm polyp in the rectum, removed with a cold biopsy forceps. Resected and retrieved. - The examination was otherwise normal on direct and retroflexion views. Recommendations : - Discharge patient to home. - Resume previous diet. - Continue present medications. - Await pathology results. - Repeat colonoscopy in 2 years for surveillance. My findings are described in the full procedure note, which is enclosed. If I can be of further assistance, please feel free to contact me at . Sincerely, Sher Dangelo, 07/24/2024 8:56:02 AM This report has been signed electronically.
--- NOTE | 2024-07-24 08:56 | OP.COLON_ITS ---
Patient Name: Vanna Carpenter Procedure Date: 07/24/2024 8:31 AM Date of : 1940 Age: 84 Procedure: Colonoscopy Indications: High risk colon cancer surveillance: Personal history of colon cancer Providers: Sher Dangelo DO Referring MD: Sher Dangelo DO Medicines: Monitored Anesthesia Care Patient Profile: This is an 84 year old female. Refer to note in patient chart for documentation of history and physical. Last Colonoscopy: 3 years ago. Complications: No immediate complications. Procedure: Pre-Anesthesia Assessment: - Prior to the procedure, a History and Physical was performed, and patient medications and allergies were reviewed. The patient is competent. The risks and benefits of the procedure and the sedation options and risks were discussed with the patient. All questions were answered and informed consent was obtained. Patient identification and proposed procedure were verified by the physician in the pre-procedure area. Mental Status Examination: alert and oriented. Airway Examination: normal oropharyngeal airway and neck mobility. Respiratory Examination: clear to auscultation. CV Examination: normal. Prophylactic Antibiotics: The patient does not require prophylactic antibiotics. Prior Anticoagulants: The patient has taken no anticoagulant or antiplatelet agents except for NSAID medication. ASA Grade Assessment: II - A patient with mild systemic disease. After reviewing the risks and benefits, the patient was deemed in satisfactory condition to undergo the procedure. The anesthesia plan was to use monitored anesthesia care (MAC). Immediately prior to administration of medications, the patient was re-assessed for adequacy to receive sedatives. The heart rate, respiratory rate, oxygen saturations, blood pressure, adequacy of pulmonary ventilation, and response to care were monitored throughout the procedure. The physical status of the patient was re-assessed after the procedure. After I obtained informed consent, the scope was passed under direct vision. Throughout the procedure, the patient's blood pressure, pulse, and oxygen saturations were monitored continuously. The Colonoscope was introduced through the anus and advanced to the cecum, identified by appendiceal orifice and ileocecal valve. The colonoscopy was performed without difficulty. The patient tolerated the procedure well. The quality of the bowel preparation was adequate. The ileocecal valve, appendiceal orifice, and rectum were photographed. Scope In: 8:40:43 AM Scope Withdrawal Time 0 hours 7 minutes 32 seconds Scope Out: 8:50:18 AM Total Procedure Duration Time 0 hours 9 minutes 35 seconds Findings: The perianal and digital rectal examinations were normal. There was evidence of a prior end-to-side colo-colonic anastomosis in the recto-sigmoid colon. This was patent and was characterized by healthy appearing mucosa, an intact staple line and visible sutures. Biopsies were taken with a cold forceps for histology. Verification of patient identification for the specimen was done. Estimated blood loss was minimal. A 5 mm polyp was found in the rectum. The polyp was sessile. The polyp was removed with a cold biopsy forceps. Resection and retrieval were complete. Verification of patient identification for the specimen was done. Estimated blood loss was minimal. The exam was otherwise without abnormality on direct and retroflexion views. Impression: - Patent end-to-side colo-colonic anastomosis, characterized by healthy appearing mucosa, an intact staple line and visible sutures. Biopsied. - One 5 mm polyp in the rectum, removed with a cold biopsy forceps. Resected and retrieved. - The examination was otherwise normal on direct and retroflexion views. Recommendation: - Discharge patient to home. - Resume previous diet. - Continue present medications. - Await pathology results. - Repeat colonoscopy in 2 years for surveillance. Procedure Code(s): --- Professional --- 01131, Colonoscopy, flexible; with biopsy, single or multiple CPT copyright 2021 [employer]. All rights reserved. The codes documented in this report are preliminary and upon computer forwarding system markup clerk review may be revised to meet current compliance requirements. Sher Dangelo DO 07/24/2024 8:56:02 AM This report has been signed electronically. Number of Addenda: 0 Note Initiated On: 07/24/2024 8:31 AM
--- NOTE | 2024-07-24 09:01 | PCM.POST.ANE ---
Anesthesia: Postop Eval I Current Vital Signs Temperature: 98 F Pulse Rate: 74 Blood Pressure: 89/59 Respiratory Rate: 16 Pulse Ox: 99 Oxygen Delivery Method: Room Air Assessment Airway patent: Yes Spontaneous unlabored respirations: Yes Mental status: Asleep nausea: No Vomiting: No Anesthesia Complication: No Fluid Hydration Crystalloid volume administer (ml): 40 Total IV fluid infused: 40 Progress Note Anesthesia document: Postop Eval 1 completed: Yes
--- NOTE | 2024-07-24 09:18 | PCM.POSTANE2 ---
Anesthesia Postop Eval I Sum Postop Eval Completion status Anesthesia document: Postop Eval 1 completed: Yes Anesthesia Postop Eval I Summary Anesthesia Postop Eval I Summary: Anesthesia Postop Eval I: Assessment Summary Airway patent Yes 07/24/24 09:03 [email or web address] Spontaneous unlabored Yes 07/24/24 09:03 [email or web address] respirations Mental status Asleep 07/24/24 09:03 [email or web address] nausea No 07/24/24 09:03 [email or web address] Vomiting No 07/24/24 09:03 [email or web address] Anesthesia Postop Eval I: Fluid Summary Crystalloid volume administer 40 07/24/24 09:03 [email or web address] (ml) Colloids volume administered ( ml) Blood Product volume administered (ml) Total IV fluid infused 40 07/24/24 09:03 [email or web address] Anesthesia Postop Eval I: Summary Notes Anesthesia Complication No 07/24/24 09:03 [email or web address] Anesthesia Complication Comment: Post-operative progress note Anesthesia: Postop Eval II Evaluation Mental status: Awake Pain Level: 0 nausea: No Vomiting: No
== END 2024-07-24 09:42 | disposition home or self-care (01) ==
LOC: EN 06:56 → AC 06:57
PROVIDERS: PCP Family Medicine; Referring Provider Family Medicine; Visit Provider Internal Medicine Gastroenterology
PROC: 0DJD8ZZ Inspection of Lower Intestinal Tract, Via Natural or Artificial Opening Endoscopic (ICD-10-PCS; CPT 45378; principal; 2024-07-24 07:55)
DX: Z12.11 Encounter for screening for malignant neoplasm of colon (principal); I10 Essential (primary) hypertension; Z87.891 Personal history of nicotine dependence; Z90.710 Acquired absence of both cervix and uterus; K62.1 Rectal polyp; Z86.16 Personal history of COVID-19; E03.9 Hypothyroidism, unspecified; Z85.038 Personal history of other malignant neoplasm of large intestine
CPT/HCPCS: 45380

== ENCOUNTER → 2024-09-11 | Outpatient (CLI) | payer MEDICARE, OTHER, SELFPAY ==
[2024-09-11 15:34] LABS: Absolute Lymphocyte Count 2.24 X10^3/uL (0.83-4.51); Absolute Neutrophil Count 4.4 X10^3/uL (2.0-7.7); Basophil# 0.07 X10^3/uL; Basophil% 0.9 % (0-1); Eosinophil# 0.15 X10^3/uL; Hematocrit 41.9 % (37-47); Hemoglobin 13.4 g/dL (12.0-15.0); Lymphocyte # 2.24 X10^3/ul (0.83-4.51); Mean Corpuscular Hgb 30.2 pg (27.0-32.0); Mean Corpuscular Volume 94.4 fL (81-99); Mean Platelet Vol. 9.2 fl (6.2-12.0); Monocyte# 0.62 X10^3/uL; Monocyte% 8.3 % (0-10); NRBC Flagged by Analyzer 0 % (0-5); Neutrophil # 4.35 X10^3/uL (2.7-7.7); Neutrophil % 58.4 % (47-70); Platelet Count 413 K/mm3 (150-450); RBC Distribution Width CV 14.6 % (11.6-14.6); RBC Distribution Width SD 50.6 fl (35.1-43.9); Red Blood Count 4.44 M/mm3 (4.2-5.4); White Blood Count 7.5 K/mm3 (4.4-11.0)
[2024-09-11 21:23] LABS: PTHIN 38 pg/mL (11-61)
[2024-09-11 22:03] LABS: ALB/GLOB Ratio 1.2 RATIO (0.9-2.4); AST(SGOT) 25 U/L (<=31); Alanine Aminotransfer ALT/SGPT 18 U/L (<=34); Albumin, Serum 4.1 g/dL (3.4-4.8); Alkaline Phosphatase 83 U/L (35-104); Anion Gap 10 (5-15); BUN 17 mg/dL (4-19); BUN/Creat Ratio 21.2 RATIO (10-20); Calcium 9.7 mg/dL (7.6-11.0); Carbon Dioxide 23.7 mmol/L (22.0-29.0); Chloride 103 mmol/L (96-108); Creatinine, Serum 0.81 mg/dL (0.70-1.20); EST Glomerular Filtration Rate 71 (>60); Globulin 3.4 g/dL (2.2-4.2); Glucose 74 mg/dL (70-99); Potassium 4.4 mmol/L (3.3-5.1); Protein, Total 7.5 g/dL (5.9-8.4); Sodium Level 137 mmol/L (133-145); Total Bilirubin 0.26 mg/dL (0.00-1.30); Vitamin D,25 Hydroxy 56.9 ng/mL (30-100)
== END | disposition home or self-care (01) ==
LOC: MFPLAB 11:27
PROVIDERS: PCP Family Medicine; Referring Provider Family Medicine; Visit Provider Family Medicine
DX: M81.0 Age-related osteoporosis without current pathological fracture (principal); R19.7 Diarrhea, unspecified; E03.9 Hypothyroidism, unspecified
CPT/HCPCS: 36415; 80053; 82306; 83970; 84443; 85025

== ENCOUNTER → 2024-10-16 | Outpatient (CLI) | payer MEDICARE, OTHER, SELFPAY ==
[2024-10-16 07:45] LABS: Absolute Lymphocyte Count 2.42 X10^3/uL (0.83-4.51); Absolute Neutrophil Count 4.3 X10^3/uL (2.0-7.7); Basophil# 0.05 X10^3/uL; Basophil% 0.7 % (0-1); Eosinophil# 0.22 X10^3/uL; Eosinophils% 2.9 % (0-5); Hematocrit 40.3 % (37-47); Hemoglobin 13.1 g/dL (12.0-15.0); Lymphocyte # 2.42 X10^3/ul (0.83-4.51); Mean Corp Hgb Conc 32.5 g/dL (32-36); Mean Corpuscular Hgb 30.3 pg (27.0-32.0); Mean Corpuscular Volume 93.1 fL (81-99); Mean Platelet Vol. 8.7 fl (6.2-12.0); Monocyte# 0.53 X10^3/uL; NRBC Flagged by Analyzer 0 % (0-5); Neutrophil # 4.32 X10^3/uL (2.7-7.7); Neutrophil % 57.1 % (47-70); Platelet Count 396 K/mm3 (150-450); RBC Distribution Width CV 14.5 % (11.6-14.6); RBC Distribution Width SD 50.2 fl (35.1-43.9); Red Blood Count 4.33 M/mm3 (4.2-5.4); White Blood Count 7.6 K/mm3 (4.4-11.0)
--- NOTE | 2024-10-16 07:45 | CT_ITS ---
PROCEDURE: CT CHEST, ABD, PEL W/CONTRAST 10/16/2024 REASON FOR EXAM: COLON CA-IV ONLY TECHNIQUE: CT chest abdomen and pelvis was performed with IV contrast. Multiplanar reformats were generated. One or more dose reduction techniques were used (e.g., Automated exposure control, adjustment of the mA and/or kV according to patient size, use of iterative reconstruction technique. PATIENT PREPARATION: Per protocol ORAL CONTRAST TYPE: None. CONTRAST: Isovue-300 VOLUME: 97mL RADIATION DOSE SUMMARY: CTDlvol: 15.2+ 6.77+ 13.59 mGy DLP: 884.96 mGycm COMPARISON: None. FINDINGS: Heart/pericardium: At least trace coronary atherosclerosis. Mild aortic annular calcification. Aorta: Moderate largely non calcific atherosclerosis. Pulmonary arteries: Unremarkable.. Lymph nodes: Unremarkable. Lungs/pleura: Small fat containing LEFT posterior likely Bochdalek hernia. Biapical pleural/parenchymal scarring. Suspect minimal emphysema. 5 x 3 mm subsolid nodule in the RIGHT lower lobe superior segment (series 6, image 49). Few additional micronodules up to 3 mm are annotated on series 2. Airways: Unremarkable. Chest wall: 8 x 4 mm nodular structure in the deep lower inner quadrant of the RIGHT breast near the chest wall. Liver: Unremarkable. Spleen: Unremarkable. Gallbladder: Unremarkable. Pancreas: Unremarkable. Adrenals: Unremarkable. Kidneys: Cysts and additional tiny hypodensities too small to characterize, likely cysts. 2 mm nonobstructing intrarenal calculus on the RIGHT. Mil difficult to trace d RIGHT caliectasis and moderate pelviectasis of the extrarenal pelvis with transition at the UPJ. Portions of the ureters. No LEFT hydronephrosis or definite ureteral calculus on either side. Bowel: Partial LEFT colectomy with low to mid rectal anastomosis. Moderate to high RIGHT colonic stool burden with mild dilatation of the ascending colon to 5.5 cm. Appendix not identified. Lymph nodes: Mildly prominent but technically nonenlarged retroperitoneal mesenteric nodes. Vasculature: Moderate atherosclerosis. Retroaortic LEFT renal vein, normal variant.. Peritoneum: Unremarkable. Bladder: Underdistended and suboptimally evaluated, grossly unremarkable. Reproductive Organs: Hysterectomy. Body Wall: Operative changes of the anterior abdominal wall including a small likely incisional hernia containing fat and a single wall of the nonobstructed transverse colon.. Musculoskeletal: Demineralization. Multilevel spondylosis. Slightly exaggerated thoracic kyphosis. Degenerative changes of the shoulders. Trace scoliosis may be positional. 5 mm punctate sclerotic focus in the RIGHT ischium. CT/CT Chest, Abd, Pel w/Contrast IMPRESSION: 1. Partial colectomy. Moderate to high RIGHT colonic stool burden with mild di latation of the ascending colon to 5.5 cm. Correlate for constipation versus colonic ileus. 2. No definite evidence of recurrent or metastatic disease. Small nonspecific pulmonary nodules up to 4 mm average axial diameter. Punctate 5 mm sclerotic focus in the RIGHT ischium may reflect a [place] however this is not definite. Given the history, attention on follow-up is warranted to ensure stability. Comparison a gainst any available outside imaging would also be helpful. 3. Recommend dedicated mammographic evaluation of RIGHT breast findings, incomp letely characterized by CT. 4. Mild RIGHT hydronephrosis and fullness of the RIGHT renal pelvis with transi tion at the UPJ. This could reflect UPJ obstruction or could be related to a crossing vessel. 5. Additional description as above. Reading Location: [id number]
[2024-10-16 08:23] LABS: ALB/GLOB Ratio 1.2 RATIO (0.9-2.4); AST(SGOT) 23 U/L (<=31); Alanine Aminotransfer ALT/SGPT 16 U/L (<=34); Albumin, Serum 4.1 g/dL (3.4-4.8); Alkaline Phosphatase 85 U/L (35-104); Anion Gap 13 (5-15); BUN 19 mg/dL (4-19); BUN/Creat Ratio 21.3 RATIO (10-20); Calcium,Total 9.6 mg/dL (7.6-11.0); Carbon Dioxide 23.2 mmol/L (21.0-32.0); Chloride 105 mmol/L (98-108); Creatinine, Serum 0.89 mg/dL (0.70-1.20); EST Glomerular Filtration Rate 63 (>60); Globulin 3.3 g/dL (2.2-4.2); Glucose 141 mg/dL (70-99); LDH 174 U/L (84-246); Protein, Total 7.3 g/dL (5.9-8.4); Sodium Level 141 mmol/L (133-145); Total Bilirubin 0.25 mg/dL (0.00-1.30)
[2024-10-17 08:09] LABS: Carcinoembryonic Antigen 1.8 ng/mL (0.0-4.7)
== END | disposition home or self-care (01) ==
LOC: CT 07:29
PROVIDERS: PCP Family Medicine; Referring Provider Internal Medicine Medical Oncology; Visit Provider Internal Medicine Medical Oncology
DX: C78.7 Secondary malignant neoplasm of liver and intrahepatic bile duct (principal); C18.7 Malignant neoplasm of sigmoid colon
CPT/HCPCS: 36415; 71260; 74177; 80053; 82378; 83615; 85025; Q9967

== ENCOUNTER 2025-06-30 12:00 | Emergency (ER) | payer MEDICARE, OTHER, SELFPAY ==
[2025-06-30 12:01] VITALS: BP 134/63; PULSE 75; RESP 18; TEMP 36.5; O2SAT 95; BMI 24.3
--- NOTE | 2025-06-30 12:23 | VDLE_ITS ---
Reason For Study Reason For Study: RLE Swelling RIGHT LEFT GSV is normal. FV is compressible, spontaneous, phasic, competent CFV is compressible, spontaneous, phasic, competent and demonstrates normal augmentation. and demonstrates normal augmentation. FV is compressible, spontaneous, phasic, competent and demonstrates normal augmentation. POP V is compressible, spontaneous, phasic, competent and demonstrates normal augmentation. T/P Trunk is compressible. PTV is compressible. RT PerV is compressible. Procedure This is a venous duplex using B-mode, color flow and spectral Doppler. Exam performed portable in ED. The exam was diagnostic. A preliminary report was called and/or faxed to Dr Kaplan. VL/Venous Duplex US, Unilateral Interpretation Summary Deep veins of the right lower extremity are patent and compressible segmentally . There is no evidence of right lower extremity deep vein thrombosis. Valvular competence appears intact within the p roximal deep venous system on the right . The right great saphenous vein appears patent and compressible segmentally. The left femoral vein is patent and compressible. Ordering Physician: Kristen Kaplan Referring Physician: N/A Performed By: Spencer Ward RVT
[2025-06-30 14:18] VITALS: BP 111/65; PULSE 66; RESP 18; TEMP 36.5; O2SAT 98
--- NOTE | 2025-06-30 16:13 | EDS_ITS ---
HPI History of Present Illness Chief Complaint: Lower Extremity Injury Narrative Narrative: Patient is a 85-year-old female presenting to the emergency department for area of swelling and ecchymosis that she noted last night in her right lower extremity. Patient has a history of adenocarcinoma in remission for 1 year, neuropathy the, anemia. Patient states that she noticed her right lower leg was itchy last night she went to scratch it and noticed that her leg was swollen. She denies any known injury to the leg. Denies any numbness or weakness to her leg. Denies any use of blood thinners. Denies any recent travel, hospitalizations or surgeries. States that she thinks she had a blood clot over 50 years ago but is unsure. She denies any other symptoms including lightheadedness, dizziness, chest pain, shortness of breath, abdominal pain. PFSH PFSH Medical History Wears glasses Thyroid disease Arthritis Bladder disease Cancer History of irregular heartbeat Tuberculosis Malaise and fatigue Diverticulosis large intestine w/o perforation or abscess w/o bleeding Bruit Fecal urgency Diarrhea Abdominal pain Elevated TSH Hypothyroidism Fatigue Bowel dysfunction Trigger finger Wears hearing aid COVID Cancer Easy bruising Migraine headache Herniated disc Heartburn Former smoker Hypertension Encounter for education Ganglion, unspecified wrist Smoker Home Medications ?Medication ?Instructions ?Recorded ?Last Taken ?Type amlodipine 2.5 mg tablet 5 mg PO QHS 06/19/21 5 History levothyroxine 25 mcg capsule 25 mcg PO QDAY 05/15/24 0 07/23/24 History Allergy/AdvReac Type Severity Reaction Status Date / Time codeine Allergy Severe Itching Verified 06/30/25 12:04 itraconazole (From Sporanox) AdvReac Severe Hives Verified 06/30/25 12:04 metronidazole (From Flagyl) AdvReac Severe nausea Verified 06/30/25 12:04 Family History Daughter Cancer Sister Diabetes Myocardial infarction Brother Diabetes Surgical History S/P ureteral stent placement History of resection of liver Enterostomy History of colonoscopy History of partial colectomy H/O cataract removal with insertion of prosthetic lens Hx of section History of hysterectomy Social History household members: none Smoking Status: Former smoker alcohol intake: current alcohol intake frequency: holidays/special occasions only substance use type: does not use what type of physical activity do you participate in: walking michael/synagogue: Buddhist ROS ROS ED ROS Narrative see HPI EXAM Physical Exam Narrative Exam Narrative: Vital signs: Reviewed General: Alert and oriented X 3. No acute distress. Well appearing, nontoxic. HEENT: Head is normocephalic and atraumatic, sinuses nontender, pupils equal round and reactive. Nares are patent. Oropharynx and throat exams normal. Neck: Supple without lymphadenopathy nontender Cardiovascular: Regular rate and rhythm, no murmurs. No rubs or gallops. Normal S1 and S2 Respiratory: Clear to auscultation bilaterally. No wheezes, rales, rhonchi Abdominal: Soft and nontender. Normal bowel sounds. No guarding or rebound. Nonsurgical abdomen Extremities: There is ecchymosis to the lateral proximal right calf with an area of mild swelling and tenderness in correlation. There is no erythema, induration or fluctuance. Compartments are soft to palpation. There is no tenderness to palpation or swelling of the right calf. DP and PT pulses are intact on the right side. Sensation and motor intact. There is no tenderness or bruising of the anterior knee, sanchez or thigh. The rest of the physical exam is unremarkable Const Vital Signs: 06/30/25 12:01 06/30/25 14:18 Temperature 97.7 F L 97.7 F L Temperature Source Oral Pulse Rate 75 66 Respiratory Rate 18 18 Blood Pressure 134/63 H 111/65 Blood Pressure Mean 86 80 Pulse Ox 95 98 Oxygen Delivery Method Room Air MDM MDM MDM Narrative Medical decision making narrative: Patient is a 85-year-old female presenting to the emergency department due to concern for possible DVT. Patient was seen and examined. Vitals are stable. Patient resting bed comfortably no acute distress. Her exam was not consistent with a DVT but patient and son at bedside are very concerned about possible blood clot. She reportedly had 1 in the past around 50 years ago. Venous DVT ultrasound was ordered and is negative for blood clot. Patient does not think she injured her leg or hit it on anything however there is an area that ecchymosis, tenderness and mild swelling. There is no evidence of cellulitis or abscess. I recommended RICE therapy for home. Questions answered. Patient able to ambulate without difficulty. Patient discharged from the Emergency Department. I do not feel that the patient's evaluation reveals any acute reason for admission at this time. I instructed them to either follow- up with their primary care physician or promptly return to the Emergency Department for reevaluation should symptoms worsen or new symptoms develop. I explained what symptoms would indicate the need to return to the emergency department. Shared decision making was used. The patient voiced understanding of the treatment plan and is agreeable with it. Clinical impression Superficial bruising of calf History & Record Review Discussion w/independent historian: Patient and Family Discharge Plan Triage Chief Complaint: Lower Extremity Injury ED Provider: Kristen Kaplan Dx/Rx/DC Orders Clinical Impression: Superficial bruising of thigh Instructions: ED Soft Tissue Contusion Prescriptions: No Action amlodipine 2.5 mg tablet 5 mg PO QHS levothyroxine 25 mcg capsule 25 mcg PO QDAY Primary Care Provider: Guido Lau Referrals: Guido Lau MD [Primary Care Provider, [facility]] - As soon as possible Activity Restrictions/Additional Instructions: Keep doing the things that you were prior to arrival including elevation, compression and icing. Your evaluation in the Emergency Department did not reveal any acute reason for admission. However, I want to emphasize that you may be early in the course of a disease process or illness even if it is not present. For this reason you should follow-up within 24 hours for reevaluation with either your primary care physician or if necessary back here in the Emergency Department. You should return to the Emergency Department immediately if your symptoms worsen or new symptoms develop. Print Language: Italian Disposition Disposition: Home, Self Care Discharge Date/Time: 06/30/25 14:23
== END 2025-06-30 14:23 | disposition home or self-care (01) ==
PROVIDERS: Emergency Provider Student in an Organized Health Care Education/Training Program; PCP Family Medicine; Visit Provider Student in an Organized Health Care Education/Training Program
DX: S70.11XA Contusion of right thigh, initial encounter (principal); I10 Essential (primary) hypertension; Z87.891 Personal history of nicotine dependence; Z90.710 Acquired absence of both cervix and uterus; Z79.899 Other long term (current) drug therapy; E03.9 Hypothyroidism, unspecified; Z79.890 Hormone replacement therapy; Z90.49 Acquired absence of other specified parts of digestive tract; M79.89 Other specified soft tissue disorders
CPT/HCPCS: 93971; 99282